=== PATIENT | male | born 1975 | race American Indian/Alaskan Native ===

== ENCOUNTER 2021-02-21 12:37 | Observation (INO) | payer MEDICAID ==
--- NOTE | 2021-02-21 13:42 | Emergency Department Report ---
ED General Adult HPI - General Chief complaint: Medical Clearance Stated complaint: HYPERTENSION /WEAKNESS Time Seen by Provider: 02/21/21 13:25 Source: patient Mode of arrival: Wheelchair Limitations: Physical Limitation - History of Present Illness Initial comments: This is a 45-year-old male who was sent from his dialysis clinic. He states that his last dialysis was on Thursday but initially stated it was . It is today. I am not exactly certain if he missed 1 dialysis run or 2. It was said by EMS and his dialysis clinic that he had missed 2 sessions. In any case he had been recently transferred to the local [facility]. He met his clinical asst for the first time today. It was decided that he should be dialyzed at the hospital. He states that his systolic blood pressure was in the 180s which he does not consider to be particularly high for him. He is been dialyzed since September. He has a recent fistula placement in his left wrist. The patient did not have blood work today. However, it was presumed due to mi ssed dialysis that his potassium would be high. Thereby according to EMS due to his uncontrolled hypertension and presumptive hyperkalemia he would have to be dialyzed at the hospital. Patient denies any specific symptom related to missing dialysis. He has not been short of breath nor significantly swelling. He does state that after his fistula placement he has had numbness essentially in the radial distribution of the dorsum of his hand and fingers/distal forearm. His vascular surgeon is Dr. Phoenix at the [facility]. -: hour(s) Radiation: other (Patient has no pain complaint) Associated Symptoms: denies other symptoms ED Review of Systems ROS: Stated complaint: HYPERTENSION /WEAKNESS Other details as noted in HPI Constitutional: denies: chills, fever Eyes: denies: eye pain, vision change ENT: denies: ear pain, throat pain Respiratory: denies: cough, shortness of breath Cardiovascular: denies: chest pain, palpitations Endocrine: no symptoms reported Gastrointestinal: denies: abdominal pain, nausea, diarrhea Genitourinary: as per HPI Musculoskeletal: denies: back pain, arthralgia Skin: denies: rash, lesions Neurological: as per HPI, numbness. denies: headache, weakness, paresthesias Psychiatric: denies: anxiety, depression Hematological/Lymphatic: denies: easy bleeding, easy bruising ED Past Medical Hx - Past Medical History Hx Hypertension: Yes Hx Renal Disease: Yes (dialysis t, th sat R chest access) Additional medical history: Legally blind - Surgical History Additional Surgical History: On Thursday, left arm fistula placed, waiting 90 days to use ED Physical Exam - General Limitations: Physical Limitation General appearance: obese - Head Head exam: Present: atraumatic, normocephalic - Eye Eye exam: Present: normal appearance. Absent: scleral icterus - ENT ENT exam: Present: mucous membranes moist - Neck Neck exam: Present: normal inspection - Respiratory Respiratory exam: Present: normal lung sounds bilaterally. Absent: respiratory distress - Cardiovascular Cardiovascular Exam: Present: regular rate, normal rhythm. Absent: systolic murmur, diastolic murmur, rubs, gallop - GI/Abdominal GI/Abdominal exam: Present: soft, normal bowel sounds. Absent: distended, tenderness, guarding, rebound - Rectal Rectal exam: Present: deferred - Extremities Exam Extremities exam: Present: normal inspection - Back Exam Back exam: Present: normal inspection - Neurological Exam Neurological exam: Present: alert, oriented X3, CN II-XII intact, motor sensory deficit (There does seem to be some decreased fine touch in the radial distribution, left hand/distal wrist/forearm) - Psychiatric Psychiatric exam: Present: normal affect, normal mood - Skin Skin exam: Present: warm, dry, intact, normal color. Absent: rash ED Course Vital Signs 02/21/21 12:43 Temperature 98.4 F Pulse Rate 93 H Respiratory 20 Rate Blood Pressure 187/92 O2 Sat by Pulse 100 Oximetry - Reevaluation(s) Reevaluation #1: Discussed with dialysis. They are aware of the need for emergency dialysis and can take the patient shortly. Discussed with nephrology. We will decide on temporizing medication versus the patient going directly to dialysis/both. 02/21/21 14:46 Reevaluation #2: Apparently Dr. Breaux has ordered the hyperkalemia cocktail. 02/21/21 14:55 ED Medical Decision Making - Lab Data Result diagrams: 02/21/21 13:44 02/21/21 13:44 Laboratory Results - last 24 hr 02/21/21 02/21/21 02/21/21 13:44 13:44 13:44 Sevier % (Auto) 8.1 H Eos % (Auto) 3.2 Sevier # (Auto) 1.0 H Eos # (Auto) 0.4 Baso # (Auto) 0.1 Seg Neutrophils % 76.3 H Seg Neutrophils # 9.0 H Sodium 134 L Chloride 102.2 Carbon Dioxide 17 L Anion Gap 22 BUN 71 H Creatinine 15.4 H Estimated GFR 4 BUN/Creatinine Ratio 5 Glucose 78 Calcium 8.8 Phosphorus 6.80 H Total Bilirubin 0.20 AST 11 Alkaline Phosphatase 84 NT-Pro-B Natriuret Pep 91651 H Total Protein 8.2 Albumin 4.5 Albumin/Globulin Ratio 1.2 Laboratory Results - last 24 hr 02/21/21 02/21/21 02/21/21 13:44 13:44 13:44 [place]vier % (Auto) 8.1 H Eos % (Auto) 3.2 Sevier # (Auto) 1.0 H Eos # (Auto) 0.4 Baso # (Auto) 0.1 Seg Neutrophils % 76.3 H Seg Neutrophils # 9.0 H Sodium 134 L Potassium 7.3 H* Chloride 102.2 Carbon Dioxide 17 L Anion Gap 22 BUN 71 H Creatinine 15.4 H Estimated GFR 4 BUN/Creatinine Ratio 5 Glucose 78 Calcium 8.8 Phosphorus 6.80 H Total Bilirubin 0.20 AST 11 Alkaline Phosphatase 84 NT-Pro-B Natriuret Pep 06118 H Total Protein 8.2 Albumin 4.5 Albumin/Globulin Ratio 1.2 - EKG Data -: EKG Interpreted by La EKG shows normal: sinus rhythm Rate: normal - EKG Data Interpretation: nonspecific ST-T wave nate, other (J-point elevation, T wave inversions, nonspecific/early repolarization.) - Radiology Data Radiology results: report reviewed "Mild cardiomegaly with minimal edema" per radiologist Critical Care Time: Yes Critical care time in (mins) excluding proc time.: 55 Critical care attestation.: If time is entered above; I have spent that time in minutes in the direct care of this critically ill patient, excluding procedure time. ED Disposition Clinical Impression: Hyperkalemia, Hyperphosphatemia, End-stage renal disease needing dialysis Fluid overload Qualifiers: Hypervolemia type: unspecified Qualified Code(s): E87.70 - Fluid overload, unspecified Cardiomyopathy Qualifiers: Cardiomyopathy type: unspecified Qualified Code(s): I42.9 - Cardiomyopathy, unspecified Disposition: OP ADMIT IP TO THIS HOSP Is pt being admited?: Yes Does the pt Need Aspirin: No Condition: Stable Time of Disposition: 14:47
[2021-02-21 14:10] LABS: Basophils # (Auto) 0.1 K/mm3 (0.0-0.1); Basophils % (Auto) 0.6 % (0.0-1.8); Eosinophils # (Auto) 0.4 K/mm3 (0.0-0.4); Eosinophils % (Auto) 3.2 % (0.0-4.3); Hematocrit 32.7 % (35.5-45.6); Hemoglobin 10.6 gm/dl (11.8-15.2); Lymphocytes # (Auto) 1.4 K/mm3 (1.2-5.4); Lymphocytes % (Auto) 11.8 % (13.4-35.0); Mean Corpuscular HGB Conc 32 % (32-34); Mean Corpuscular Volume 85 fl (84-94); Monocytes % (Auto) 8.1 % (0.0-7.3); Platelet Count 186 K/mm3 (140-440); Red Blood Count 3.86 M/mm3 (3.65-5.03); Red Cell Distribution Width 18.9 % (13.2-15.2)
--- NOTE | 2021-02-21 14:26 | XRay Report ---
CHEST 1 VIEW INDICATION: hypertension. COMPARISON: None FINDINGS: SUPPORT DEVICES: Right IJ catheter with tip at the cavoatrial junction. HEART: Mild cardiomegaly. LUNGS/PLEURA: Minimal edema with no effusion or consolidation. ADDITIONAL FINDINGS: None. IMPRESSION: 1. Mild cardiomegaly with minimal edema. 2. Right IJ catheter in satisfactory position. Signer Name: Anders De MD Signed: 02/21/2021 2:21 PM Workstation Name: [id number]
[2021-02-21 14:31] LABS: Calcium 8.8 mg/dL (8.4-10.2)
[2021-02-21 14:34] LABS: Albumin 4.5 g/dL (3.9-5)
[2021-02-21 14:41] LABS: Alanine Aminotransferase < 5 units/L (7-56); Bilirubin,Direct < 0.2 mg/dL (0-0.2); INR 1.05 (0.87-1.13)
[2021-02-21] MEDS ORDERED: ACETAMINOPHEN 325 MG TAB PO PRN (14:41)
[2021-02-21] MEDS ORDERED: ONDANSETRON 4 MG/2 ML INJ IV PRN (14:41)
--- NOTE | 2021-02-21 14:41 | History and Physical Report ---
History of Present Illness Chief complaint: My blood pressure is high History of present illness: 45 YO Male with ESRD on HD(T,R,Sa), HNT, Legally Blind presents to ED for evaluation. Patient reports "my blood pressure is really high". Patient states that he was in his usual state of health and presented to his dialysis center for his routine dialysis. Patient knowledges missing previous to dialysis sessions. Upon arrival the patient was found to be hypertensive with a systolic blood pressure in the 180s. Patient transported to [facility] for further care and evaluation of the aforementioned symptoms. The patient was seen and evaluated in the emergency department. All lab and imaging studies reviewed. Patient found to have end-stage renal disease in need of dialysis, hyperkalemia, as well as accelerated Hypertension with a blood pressure of 187/92. Patient placed in observation status and admitted to medical floor for further care. Nephrology team notified in ED. Patient treated with hyperkalemia cocktail in ED. No EKG changes. Patient denies fever, chills, chest pain, palpitation, productive cou gh, skin rash, recent ill contacts, or known exposure to COVID-19. No prior admission for review. No medication listed at time of admission for reconciliation. Past History Past Medical History: ESRD, hypertension Past Surgical History: Other (Dialysis access) Social history: , lives with family. denies: smoking, alcohol abuse, prescription drug abuse Family history: diabetes, hypertension Medications and Allergies Allergies Allergy/AdvReac Type Severity Reaction Status Date / Time clonidine Allergy Unknown Verified 02/21/21 14:59 hydralazine Allergy Unknown Verified 02/21/21 15:00 Review of Systems Constitutional: other (My blood pressure is high), no weight loss, no weight gain, no fever Ears, nose, mouth and throat: no ear pain, no tinnitis, no decreased hearing, no nose pain, no nasal congestion, no nasal discharge Cardiovascular: no chest pain, no orthopnea, no palpitations, no rapid/irregular heart beat, no edema, no syncope, no lightheadedness Respiratory: no cough, no cough with sputum, no shortness of breath, no dyspnea on exertion Gastrointestinal: no nausea, no vomiting, no constipation, no change in bowel habits, no hematemesis, no coffee ground emesis Genitourinary Male: no dysuria, no hematuria, no discharge, no urinary hes itancy, no nocturia, no incontinence, no genital pain Rectal: no pain, no incontinence, no bleeding Musculoskeletal: no neck stiffness, no neck pain, no arm numbness/tingling, no leg numbness/tingling Integumentary: no rash, no pruritis, no redness, no sores, no boils, no blisters Neurological: no head injury, no transient paralysis, no paralysis, no weakness, no numbness, no seizures, no tremors Psychiatric: no anxiety, no insomnia, no hypersomnia, no suicidal ideation, no disorientation, no hallucinations Endocrine: no heat intolerance, no polyphagia, no polydipsia, no nocturia, no excessive sweating Hematologic/Lymphatic: no easy bruising, no easy bleeding Allergic/Immunologic: no urticaria, no allergic rhinitis, no wheezing Exam - Constitutional Vitals: Temp Pulse Resp BP Pulse Ox 98.4 F 93 H 20 187/92 100 02/21/21 12:43 02/21/21 12:43 02/21/21 12:43 02/21/21 12:43 02/21/21 12:43 General appearance: Present: mild distress, obese - EENT Eyes: Present: PERRL ENT: hearing intact, clear oral mucosa - Neck Neck: Present: supple, normal ROM - Respiratory Respiratory effort: normal Respiratory: bilateral: CTA - Cardiovascular Heart Sounds: Present: S1 & S2. Absent: rub, click - Extremities Extremities: pulses symmetrical, No edema Peripheral Pulses: within normal limits - Abdominal General gastrointestinal: Present: soft, non-tender, non-distended, normal bowel sounds Male genitourinary: Present: normal - Integumentary Integumentary: Present: clear, warm, dry - Musculoskeletal Musculoskeletal: gait normal, strength equal bilaterally - Psychiatric Psychiatric: appropriate mood/affect, intact judgment & insight - Neurologic Neurologic: CNII-XII intact, moves all extremities Results - Labs CBC & Chem 7: 02/21/21 13:44 02/21/21 13:44 Labs: Abnormal lab results 02/21/21 02/21/21 02/21/21 Range/Units 13:44 13:44 13:44 Hughes % (Auto) 8.1 H (0.0-7.3) % Hughes # (Auto) 1.0 H (0.0-0.8) K/mm3 Seg Neutrophils % 76.3 H (40.0-70.0) % Seg Neutrophils # 9.0 H (1.8-7.7) K/mm3 Sodium 134 L (137-145) mmol/L Potassium 7.3 H* (3.6-5.0) mmol/L Carbon Dioxide 17 L (22-30) mmol/L BUN 71 H (9-20) mg/dL Creatinine 15.4 H (0.8-1.3) mg/dL Phosphorus 6.80 H (2.5-4.5) mg/dL ALT < 5 L (7-56) units/L NT-Pro-B Natriuret Pep 83611 H (0-450) pg/mL Assessment and Plan - Patient Problems (1) End-stage renal disease needing dialysis Current Visit: No Status: Acute Plan to address problem: Nephrology team consulted in ED, dialysis as per renal team. Due to missed dialysis sessions patient may require serial dialysis. Strict I's/O, monitor urine output every shift, avoid nephrotoxic agents. (2) Accelerated hypertension Current Visit: Yes Status: Acute Plan to address problem: Monitor blood pressure every shift, resume prehospital antihypertensive therapy, hydralazine IV every 6 hours as needed for systolic blood pressure greater than or equal to 155 mmHg. (3) Hyperkalemia Current Visit: No Status: Acute Plan to address problem: BMP, dialysis as per renal team, calcium gluconate, Kayexalate, insulin, D50, no EKG changes. (4) DVT prophylaxis Current Visit: Yes Status: Acute Plan to address problem: SCD to bilateral lower extremities while in bed, patient is ambulatory.
[2021-02-21 14:42] LABS: Partial Thromboplastin Time 45.1 Sec. (24.2-36.6)
[2021-02-21] MEDS ORDERED: hydrALAZINE 20 MG/1 ML INJ IV PRN (14:42)
[2021-02-21] MEDS ORDERED: CALCIUM GLUCONATE 1,000 MG in SODIUM CHLORIDE 0.9% 100 ML IV ONE (14:44)
[2021-02-21] MEDS ORDERED: DEXTROSE 50% IN WATER (25GM) 50 ML SYRINGE IV ONE (14:45)
[2021-02-21] MEDS ORDERED: SODIUM CHLORIDE 0.9% 100 ML IV PRN (15:17)
[2021-02-21] MEDS ORDERED: INSULIN REGULAR, HUMAN 100 UNITS/1 ML IV ONE (15:44)
[2021-02-21] MEDS ORDERED: SODIUM POLYSTYRENE 15 GM/60 ML ORAL LIQD PO ONE (15:44)
[2021-02-21 17:19] LABS: Hepatitis B Surface Antigen Non-Reactive (Negative); Hepatitis C Virus Antibody Non-Reactive (NonReactive)
[2021-02-21 19:17] VITALS: BP 136/64
--- NOTE | 2021-02-22 14:42 | Electrocardiograph Report ---
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
== END 2021-02-21 19:50 | disposition left against medical advice (07) ==
LOC: ED 12:37 → 3A 14:41
PROVIDERS: ADMIT Internal Medicine; ATTEND Internal Medicine
DX: I12.0 Hypertensive chronic kidney disease with stage 5 chronic kidney disease or end stage renal disease (principal); N18.6 End stage renal disease; H54.7 Unspecified visual loss; E87.5 Hyperkalemia; I42.9 Cardiomyopathy, unspecified; I51.7 Cardiomegaly; E87.70 Fluid overload, unspecified; E83.39 Other disorders of phosphorus metabolism; Z99.2 Dependence on renal dialysis; Z79.899 Other long term (current) drug therapy
CPT/HCPCS: 36415; 71045; 80048; 80074; 80076; 83880; 84100; 85025; 85610; 85730; 93005; 96374; 99291; G0378; J0610; J1815

== ENCOUNTER 2021-03-26 12:45 | Inpatient (IN) | payer MEDICARE, MEDICAID ==
[2021-03-26] MEDS ORDERED: ONDANSETRON 4 MG/2 ML INJ IV ONE (13:23)
[2021-03-26] MEDS ORDERED: ACETAMINOPHEN 325 MG TAB PO ONE (13:23)
[2021-03-26] MEDS ORDERED: PANTOPRAZOLE 40 MG INJ IV ONE ×2 (13:23→13:54)
--- NOTE | 2021-03-26 13:29 | Emergency Department Report ---
ED General Adult HPI - General Chief complaint: Nausea/Vomiting/Diarrhea Stated complaint: NAUSEA/VOMITING PUI?: No Time Seen by Provider: 03/26/21 13:07 Source: patient, EMS ( EMS documentation not available at time of chart dictation ), RN notes reviewed, old records reviewed Mode of arrival: Stretcher Limitations: No Limitations - History of Present Illness Initial comments: The patient was evaluated in the emergency department for symptoms described in the history of present illness. He/she was evaluated in the context of the global COVID-19 pandemic, which necessitated consideration that the patient might be at risk for infection with the virus that causes COVID-19. Institutional protocols and algorithms that pertain to the evaluation of patients at risk for COVID-19 are in a state of rapid change based on infor mation released by regulatory bodies including the CDC and federal and state organizations. These policies and algorithms were followed during the patient's care in the emergency department. Please note that these policies, procedures and recommendations changed on a rapid basis. During the history and physical examination, I am chaperoned by nurse Chino Arreola The patient is a 45-year-old gentleman. He is not known to myself previously. He has a history of end-stage renal disease on hemodialysis, Thursday, , Thursday. He reports that secondary to personal reasons, he missed a few of his recent hemodialysis sessions, and he was last dialyzed this past Thursday. He also has a history of cardiomyopathy. He currently does not take iron sulfate supplementation, he also reports he does not take systemic anticoagulation. The patient presents to the ER today with a complaint of weakness, abdominal cramping, nausea vomiting, and dark stool. Denies headache, neck pain, chest pain, new/different shortness of breath, loss of taste and smell. The patient states his abdominal cramping is diffuse. The patient to the best of his knowledge has never had a colonoscopy. The patient also reports he is currently Taoism. The patient states he will not received any blood related products. -: Gradual Location: abdomen Quality: aching Consistency: intermittent Improves with: none Worsens with: none - Related Data Home Medications Medication Instructions Recorded Confirmed Last Taken Losartan [Cozaar] 100 mg PO QDAY 03/26/21 03/26/21 Unknown NIFEdipine [Nifedipine ER] 90 mg PO DAILY 03/26/21 03/26/21 Unknown carvediloL [Coreg] 25 mg PO BID 03/26/21 03/26/21 Unknown Allergies Allergy/AdvReac Type Severity Reaction Status Date / Time clonidine Allergy Unknown Verified 02/21/21 14:59 hydralazine Allergy Unknown Verified 02/21/21 15:00 ED Review of Systems ROS: Stated complaint: NAUSEA/VOMITING Other details as noted in HPI Constitutional: malaise, weakness. denies: fever Eyes: denies: eye discharge ENT: denies: epistaxis Respiratory: denies: cough Cardiovascular: denies: chest pain Gastrointestinal: abdominal pain, nausea, melena, hematochezia Genitourinary: denies: dysuria Musculoskeletal: myalgia Neurological: weakness Psychiatric: anxiety Hematological/Lymphatic: denies: easy bleeding ED Past Medical Hx - Past Medical History Hx Hypertension: Yes Hx Congestive Heart Failure: Yes Hx Renal Disease: Yes (dialysis t, th sat R chest access) Additional medical history: Legally blind - Surgical History Additional Surgical History: On Thursday, left arm fistula placed, waiting 90 days to use - Social History Smoking Status: Former Smoker Substance Use Type: Alcohol - Medications Home Medications: Home Medications Medication Instructions Recorded Confirmed Last Taken Type Losartan [Cozaar] 100 mg PO QDAY 03/26/21 03/26/21 Unknown History NIFEdipine [Nifedipine ER] 90 mg PO DAILY 03/26/21 03/26/21 Unknown History carvediloL [Coreg] 25 mg PO BID 03/26/21 03/26/21 Unknown History ED Physical Exam - General Limitations: No Limitations General appearance: alert, anxious, obese - Head Head exam: Present: atraumatic, normocephalic - Eye Eye exam: Present: normal appearance, EOMI. Absent: nystagmus - ENT ENT exam: Present: normal exam, normal orophraynx, mucous membranes moist, normal external ear exam - Neck Neck exam: Present: normal inspection, full ROM. Absent: tenderness, meningismus - Respiratory Respiratory exam: Present: normal lung sounds bilaterally. Absent: respiratory distress, wheezes, rales, rhonchi, stridor, decreased breath sounds - Cardiovascular Cardiovascular Exam: Present: normal rhythm, tachycardia, normal heart sounds. Absent: bradycardia, irregular rhythm, systolic murmur, diastolic murmur, rubs, gallop - GI/Abdominal GI/Abdominal exam: Present: soft. Absent: distended, tenderness, guarding, belia ound, rigid, pulsatile mass - Rectal Rectal exam: Present: normal inspection, heme (+) stool, black stool - Extremities Exam Extremities exam: Present: normal inspection (Upper extremity fistula, without redness, pus or streaking), full ROM, other (2+ pulses noted in the bilateral upper and lower extremities. There is no palpable cord. negative Homans sign. Muscular compartments are soft. The pelvis is stable.). Absent: calf tenderness - Back Exam Back exam: Present: normal inspection, full ROM. Absent: tenderness, CVA tenderness (R), CVA tenderness (L), paraspinal tenderness, vertebral tenderness - Neurological Exam Neurological exam: Present: alert, other (No facial droop. Tongue midline. Extraocular movements intact bilaterally. Facial sensation intact to light touch in V1, V2, V3 distribution bilaterally. 5 and a 5 strength in 4 extremities. Sensation intact to light touch in 4 extremities.). Absent: motor sensory deficit - Psychiatric Psychiatric exam: Present: anxious - Skin Skin exam: Present: warm, dry, intact, normal color. Absent: rash ED Course Vital Signs 03/26/21 03/26/21 03/26/21 12:49 12:57 14:10 Temperature 98.2 F Pulse Rate 106 H 100 H Respiratory 20 20 18 Rate Blood Pressure 171/86 Blood Pressure 157/93 [Right] O2 Sat by Pulse 100 100 100 Oximetry - Reevaluation(s) Reevaluation #1: 03/26/21 14:52 Differential diagnosis, including but not limited to: Upper GI bleed, azotemia, uremia, metabolic acidosis, end-stage renal disease, missed hemodialysis, noncompliance, symptomatic anemia, Taoism Assessment and plan: 45-year-old gentleman, who is tachycardic, hypertensive, with a complaint of abdominal pain, and dark stool. He has dark stool on rectal exam, and is strongly guaiac positive. Hemoglobin, hematocrit are reviewed and appreciated, and they have shown a significant drop with compared to prior values within the past month. Patient is a Taoism, currently awake, alert, oriented, sober, and exhibits decision-making capacity. Under no circumstances will he accepts human blood products. He understands the risks of not having a blood transfusion, including , disability, paralysis, loss of quality of life. He is amenable to medical therapy at this time. Start gentle IV fluids, Protonix, 2 large-bore IVs, desmopressin, n.p.o. status. Obtain noncontrast CT scan of the abdomen pelvis to assess for additional pathology. Contacted nephrology on-call, Dr. Jo Warner Have discussed the patient's history, physical, pertinent laboratory studies. He will come by and evaluate the patient shortly, and make recommendations regarding hemodialysis. In terms of potassium of 5.4, we will treat medically, but withhold Kayexalate, given presence of GI bleed. Contacted gastroenterology on-call, Dr. Billy, I have discussed the patient's history, physical, pertinent laboratory studies. He indicates that it would be desirable to transfer the patient to a facility that can accommodate Jehov[employer]'s [employer]es. We will therefore start with [place], and then if necessary, reach out to alternative facilities to see if this patient can be accommodated. However, Dr. Billy does indicate that if necessary, he can consult on the patient while he is here at this facility. Reevaluation #2: 03/26/21 14:59 Received call back from [place] transfer center. Be transferred nurse that I spoke to is not certain if they have a bloodless program that can accommodate Je[employer]es. She is going to investigate and call me back. In the meantime, we will investigate alternative options, and we will reach out to the [facility]. 03/26/21 15:07 Discussed with [facility]. They no longer have a bloodless medicine program. They have suggested that [place] and/or [place] may have bloodless medicine programs. We will reach out. 03/26/21 15:17 [place] on diversion. They are not excepting patients. [place] on diversion. They are not excepting patients. [place] does not have a bloodless program that is able to accommodate this p articular patient. Gastroenterology, nephrology updated. Patient will need to be admitted to this hospital. Case is presented to the hospital physician, Dr. Owen Olson, who will accept the patient to his service. Reevaluation #3: 03/26/21 15:39 CT scan of the abdomen pelvis is negative for acute disease. ED Medical Decision Making - Lab Data Result diagrams: 03/26/21 13:10 03/26/21 13:10 Vital Signs 03/26/21 03/26/21 03/26/21 12:49 12:57 14:10 Temperature 98.2 F Pulse Rate 106 H 100 H Respiratory 20 20 18 Rate Blood Pressure 171/86 Blood Pressure 157/93 [Right] O2 Sat by Pulse 100 100 100 Oximetry Lab Results 03/26/21 03/26/21 03/26/21 Range/Units 13:10 13:10 13:10 WBC 14.8 H (4.5-11.0) K/mm3 RBC 1.66 L (3.65-5.03) M/mm3 Hgb 4.6 L* (11.8-15.2) gm/dl Hct 14.0 L* (35.5-45.6) % MCV 85 (84-94) fl MCH 28 (28-32) pg MCHC 33 (32-34) % RDW 19.0 H (13.2-15.2) % Plt Count 169 (140-440) K/mm3 PT 15.4 H (12.2-14.9) Sec. INR 1.22 H (0.87-1.13) APTT 48.4 H (24.2-36.6) Sec. Sodium 140 (137-145) mmol/L Potassium 5.4 H (3.6-5.0) mmol/L Chloride 99.4 (98-107) mmol/L Carbon Dioxide 19 L (22-30) mmol/L Anion Gap 27 mmol/L BUN 98 H (9-20) mg/dL Creatinine 11.5 H (0.8-1.3) mg/dL Estimated GFR 6 ml/min BUN/Creatinine Ratio 9 % Glucose 91 (75-100) mg/dL Calcium 8.4 (8.4-10.2) mg/dL Magnesium 2.00 (1.7-2.3) mg/dL Total Bilirubin 0.20 (0.1-1.2) mg/dL AST 10 (5-40) units/L ALT 5 L (7-56) units/L Alkaline Phosphatase 57 (35-129) units/L Total Creatine Kinase 218 H (55-170) units/L Total Protein 5.9 L (6.3-8.2) g/dL Albumin 3.7 L (3.9-5) g/dL Albumin/Globulin Ratio 1.7 % Blood Type 03/26/21 Range/Units 13:42 WBC (4.5-11.0) K/mm3 RBC (3.65-5.03) M/mm3 Hgb (11.8-15.2) gm/dl Hct (35.5-45.6) % MCV (84-94) fl MCH (28-32) pg MCHC (32-34) % RDW (13.2-15.2) % Plt Count (140-440) K/mm3 PT (12.2-14.9) Sec. INR (0.87-1.13) APTT (24.2-36.6) Sec. Sodium (137-145) mmol/L Potassium (3.6-5.0) mmol/L Chloride (98-107) mmol/L Carbon Dioxide (22-30) mmol/L Anion Gap mmol/L BUN (9-20) mg/dL Creatinine (0.8-1.3) mg/dL Estimated GFR ml/min BUN/Creatinine Ratio % Glucose (75-100) mg/dL Calcium (8.4-10.2) mg/dL Magnesium (1.7-2.3) mg/dL Total Bilirubin (0.1-1.2) mg/dL AST (5-40) units/L ALT (7-56) units/L Alkaline Phosphatase (35-129) units/L Total Creatine Kinase (55-170) units/L Total Protein (6.3-8.2) g/dL Albumin (3.9-5) g/dL Albumin/Globulin Ratio % Blood Type O POSITIVE - EKG Data -: EKG Interpreted by [facility] EKG shows normal: sinus rhythm - EKG Data 03/26/21 14:51 EKG interpreted at 13: 52 Sinus rhythm, tachycardia, 102 bpm. Normal axis, QTC 494 ms. Minimal motion artifact. This is an abnormal EKG. This is not a STEMI. - Radiology Data Radiology results: pending Critical Care Time: Yes Critical care time in (mins) excluding proc time.: 74 Critical care attestation.: If time is entered above; I have spent that time in minutes in the direct care of this critically ill patient, excluding procedure time. ED Disposition Clinical Impression: ESRD needing dialysis, Missed dialysis, Anemia, GI bleed, Azotemia, Uremia, Metabolic acidosis Disposition: DC-09 OP ADMIT IP TO THIS HOSP Is pt being admited?: Yes Does the pt Need Aspirin: No Condition: Critical
[2021-03-26 13:42] LABS: Mean Corpuscular HGB Conc 33 % (32-34); Mean Corpuscular Volume 85 fl (84-94); Platelet Count 169 K/mm3 (140-440); Red Blood Count 1.66 M/mm3 (3.65-5.03)
[2021-03-26 13:53] LABS: INR 1.22 (0.87-1.13)
[2021-03-26 13:54] LABS: Partial Thromboplastin Time 48.4 Sec. (24.2-36.6)
[2021-03-26] MEDS ORDERED: ACETAMINOPHEN 325 MG TAB ONE (13:54)
[2021-03-26] MEDS ORDERED: ONDANSETRON 4 MG/2 ML INJ ONE (13:54)
[2021-03-26 14:29] LABS: Hemoglobin 4.6 gm/dl (11.8-15.2)
[2021-03-26 14:33] LABS: Albumin 3.7 g/dL (3.9-5); Calcium 8.4 mg/dL (8.4-10.2)
--- NOTE | 2021-03-26 14:49 | Cat Scan Report ---
CT ABDOMEN AND PELVIS WITHOUT CONTRAST HISTORY: Abdominal pain, nausea and vomiting COMPARISON: None TECHNIQUE: Routine abdominal and pelvic CT exam performed without contrast. Lack of intravenous cont rast limits evaluation of the vascular and solid organs.. All CT scans at this location are performed using CT dose reduction for ALARA by means of automated exposure control. FINDINGS: CT ABDOMEN: Lung Bases: No significant abnormality. Liver: No significant abnormality. Biliary: No significant abnormality. Spleen: No significant abnormality. Unenlarged. Pancreas: No significant abnormality. Adrenals: Bilateral adrenal glands are mildly hypertrophied without discrete focal mass. Kidneys: No significant abnormality. Lymphatics: No lymphadenopathy. Vasculature: No significant abnormality. Bowel/Peritoneum: Nonobstructive bowel pattern. Diverticulosis without mesocolonic fat stranding. No free air. No free fluid. Normal appendix. CT PELVIC: : No significant abnormality. Lymphatics: No lymphadenopathy. Osseous Structures: No aggressive appearing osseous lesions. Additional Findings: None IMPRESSION: 1. No acute findings. 2. Colonic diverticulosis without evidence of diverticulitis. 3. Mild bilateral adrenal hyperplasia. Signer Name: Rafi Ellison MD Signed: 03/26/2021 2:45 PM Workstation Name: [id number]
[2021-03-26] MEDS ORDERED: SODIUM BICARB 8.4% 50 MEQ/50 ML SYRINGE IV ONE ×2 (15:00→15:09)
[2021-03-26] MEDS ORDERED: DESMOPRESSIN ACETATE IV ONE (15:00)
[2021-03-26] MEDS ORDERED: PANTOPRAZOLE 80 MG in SODIUM CHLORIDE 0.9% 100 ML IV SCH (15:00)
[2021-03-26] MEDS ORDERED: SODIUM CHLORIDE 0.9% IV ONE (15:00)
[2021-03-26] MEDS ORDERED: DEXTROSE 50% IN WATER (25GM) 50 ML SYRINGE IV PRN (15:00)
[2021-03-26] MEDS ORDERED: INSULIN REGULAR, HUMAN 100 UNITS/1 ML IV ONE (15:00)
[2021-03-26] MEDS ORDERED: DEXTROSE 50% IN WATER (25GM) 50 ML SYRINGE IV ONE (15:08)
[2021-03-26] MEDS ORDERED: INSULIN REGULAR, HUMAN 100 UNITS/1 ML ONE (15:10)
--- NOTE | 2021-03-26 15:20 | Consultation ---
History of Present Illness - Reason for Consult end stage renal disease - History of Present Illness patient with esrd on HD since 08/2020 every TTS, last tx was this AM but only finished one hour, he came to the ED for weakness, abdominal cramping, nausea vomiting, and dark stool. Denies headache, neck pain, chest pain, new/different shortness of breath, loss of taste and smell. The patient states his abdominal cramping is diffuse. The patient also reports he is currently Sabianist. The patient states he will not received any blood related products. renal; consult was requested for HD management while inpatient Past History Past Medical History: anemia, ESRD, hypertension Medications and Allergies Allergies Allergy/AdvReac Type Severity Reaction Status Date / Time clonidine Allergy Unknown Verified 02/21/21 14:59 hydralazine Allergy Unknown Verified 02/21/21 15:00 Home Medications Medication Instructions Recorded Confirmed Last Taken Type Losartan [Cozaar] 100 mg PO QDAY 03/26/21 03/26/21 Unknown History NIFEdipine [Nifedipine ER] 90 mg PO DAILY 03/26/21 03/26/21 Unknown History carvediloL [Coreg] 25 mg PO BID 03/26/21 03/26/21 Unknown History Active Meds: Active Medications Dextrose (Dextrose 50% In Water (25gm) 50 Ml Syringe) 50 ml IV Q30MIN PRN; Protocol PRN Reason: Hypoglycemia Epoetin Vaibhav (Epoetin Vaibhav 2,000 Unit/1 Ml Vial) 20,000 unit IV VANGIE PRATIMA Desmopressin Acetate 33.9 mcg/ (Sodium Chloride) 58.475 mls @ 100 mls/hr IV ONCE ONE Stop: 03/26/21 15:35 Pantoprazole Sodium 80 mg/ (Sodium Chloride) 100 mls @ 10 mls/hr IV DIRECT PRATIMA Calcium Gluconate 1,000 mg/ (Sodium Chloride) 110 mls @ 660 mls/hr IV ONCE ONE Stop: 03/26/21 16:09 Exam - Vital Signs Vital signs: Vital Signs Temp Pulse Resp BP Pulse Ox 98.2 F 106 H 20 171/86 100 03/26/21 12:49 03/26/21 12:49 03/26/21 12:49 03/26/21 12:49 03/26/21 12:49 - General Appearance General appearance: well-developed EENT: ATNC, PERRL Neck: Present: neck supple Respiratory: Clear to Ascultation Heart: tachycardia Gastrointestinal: Present: normal Integumentary: no rash, warm and dry Neurologic: no focal deficit, no asterixis Musculoskeletal: Present: other Psychiatric: mood/affect appropriate, cooperative Results - Lab Results 03/26/21 13:10 03/26/21 13:10 Most recent lab results Calcium 8.4 mg/dL (8.4-10.2) 03/26/21 13:10 Magnesium 2.00 mg/dL (1.7-2.3) 03/26/21 13:10 Assessment and Plan ESRD on HD Anemia in CKD \HTN Hyperkalemia Weakness Nuasea and vomiting HD tomorrow for clearance and volume removal will assess dialysis nees daily Epogen 20,000 unit withs HD iron panel ordered, may need to start IV iron if appropriate renally dose meds strict I&O
[2021-03-26] MEDS ORDERED: MORPHINE 2 MG/1 ML INJ IV ONE (15:45)
[2021-03-26] MEDS ORDERED: MORPHINE 2 MG/1 ML INJ ONE (15:47)
[2021-03-26] MEDS ORDERED: CALCIUM GLUCONATE 1,000 MG in SODIUM CHLORIDE 0.9% 100 ML IV ONE (16:00)
[2021-03-26] MEDS ORDERED: EPOETIN ALFA-EPBX 20,000 UNIT/1 ML VIAL IV SCH (16:00)
[2021-03-26] MEDS ORDERED: EPOETIN ALFA 2,000 UNIT/1 ML VIAL IV SCH (16:00)
[2021-03-26 17:16] LABS: Hepatitis B Surface Antigen Non-Reactive (Negative); Hepatitis C Virus Antibody Non-Reactive (NonReactive)
--- NOTE | 2021-03-26 17:29 | Gastroenterology Consultation ---
History of Present Illness - Reason for Consult Consult date: 03/26/21 Acute blood loss anemia Requesting physician: GAUDENCIO VINCENT - History of Present Illness The patient is a 45 yo male admitted after missing HD. He has new ESRD on HD in the last 6 months (per records at [facility]). He has associated melena in the ER, and was noted to have a hct of 14. Although last month his hct was over 30, in October at [facility] it was 24-26. He has been taking daily ASA, and PRN advil/aleve for aches and pain. He denies hematemesis, or a hx of PUD. He has back pain but no severe abdominal pain or vomiting. He is not on antiacid therapy at home. He is a [employer], and states multiple times he does not want a blood transfusion, even it leads to his demise. It is not clear if he was getting epogen at his HD (recently changed centers). Past History Past Medical History: anemia, ESRD, hypertension Medications and Allergies Allergies Allergy/AdvReac Type Severity Reaction Status Date / Time clonidine Allergy Unknown Verified 02/21/21 14:59 hydralazine Allergy Unknown Verified 02/21/21 15:00 Home Medications Medication Instructions Recorded Confirmed Last Taken Type Losartan [Cozaar] 100 mg PO QDAY 03/26/21 03/26/21 Unknown History NIFEdipine [Nifedipine ER] 90 mg PO DAILY 03/26/21 03/26/21 Unknown History carvediloL [Coreg] 25 mg PO BID 03/26/21 03/26/21 Unknown History Active Meds: Active Medications Dextrose (Dextrose 50% In Water (25gm) 50 Ml Syringe) 50 ml IV Q30MIN PRN; Protocol PRN Reason: Hypoglycemia Last Admin: 03/26/21 15:18 Dose: 50 ml Documented by: Pantoprazole Sodium 80 mg/ (Sodium Chloride) 100 mls @ 10 mls/hr IV DIRECT PRATIMA I HAVE REVIEWED/RECONCILED MEDICATIONS Review of Systems - Review of Systems All systems: negative (as noted in the HPI.) Exam - Constitutional Vital Signs: Temp Pulse Resp BP Pulse Ox 98.2 F 110 H 14 156/80 100 03/26/21 12:49 03/26/21 17:16 03/26/21 17:16 03/26/21 17:16 03/26/21 17:16 General appearance: no acute distress - EENT Eyes: PERRL, EOM intact ENT: hearing intact, clear oral mucosa - Neck Neck: supple, normal ROM - Respiratory Respiratory effort: normal Respiratory: bilateral: CTA - Cardiovascular Rhythm: regular Heart Sounds: Present: S1 & S2 Extremities: no ischemia, No edema - Gastrointestinal General gastrointestinal: Present: soft, non-tender, non-distended - Integumentary Integumentary: Present: clear, warm, dry - Neurologic Neurological: alert and oriented x3 - Labs CBC & Chem 7: 03/26/21 13:10 03/26/21 13:10 Lab Results: Laboratory Results - last 24 hr 03/26/21 03/26/21 03/26/21 13:10 13:10 13:10 WBC 14.8 H RBC 1.66 L Hgb 4.6 L* Hct 14.0 L* MCV 85 MCH 28 MCHC 33 RDW 19.0 H Plt Count 169 PT 15.4 H INR 1.22 H APTT 48.4 H Sodium 140 Potassium 5.4 H Chloride 99.4 Carbon Dioxide 19 L Anion Gap 27 BUN 98 H Creatinine 11.5 H Estimated GFR 6 BUN/Creatinine Ratio 9 Glucose 91 Calcium 8.4 Magnesium 2.00 Total Bilirubin 0.20 AST 10 ALT 5 L Alkaline Phosphatase 57 Total Creatine Kinase 218 H Total Protein 5.9 L Albumin 3.7 L Albumin/Globulin Ratio 1.7 Hepatitis A IgM Ab Hep Bs Antigen Hep B Core IgM Ab Hepatitis C Antibody Blood Type Antibody Screen 03/26/21 03/26/21 13:42 16:00 WBC RBC Hgb Hct MCV MCH MCHC RDW Plt Count PT INR APTT Sodium Potassium Chloride Carbon Dioxide Anion Gap BUN Creatinine Estimated GFR BUN/Creatinine Ratio Glucose Calcium Magnesium Total Bilirubin AST ALT Alkaline Phosphatase Total Creatine Kinase Total Protein Albumin Albumin/Globulin Ratio Hepatitis A IgM Ab Non-reactive Hep Bs Antigen Non-reactive Hep B Core IgM Ab Non-reactive Hepatitis C Antibody Non-reactive Blood Type O POSITIVE Antibody Screen Negative Assessment and Plan - Patient Problems (1) Acute blood loss anemia Current Visit: Yes Status: Acute Plan to address problem: - The patient will receive HD, and epogen. - We will stop all NSAIDs, and start protonix IV. - Consider EGD when more clinically stable. 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
[2021-03-26] MEDS ORDERED: METOCLOPRAMIDE 10 MG/2 ML INJ IV PRN (20:32)
[2021-03-26] MEDS ORDERED: ACETAMINOPHEN 325 MG TAB PO PRN (20:32)
[2021-03-26] MEDS ORDERED: ONDANSETRON 4 MG/2 ML INJ IV PRN (20:32)
[2021-03-26] MEDS ORDERED: HYDROmorphone 1 MG/1 ML INJ ONE (20:45)
[2021-03-26] MEDS: HYDROmorphone 1 MG/1 ML INJ IV PRN (20:47)
[2021-03-26] MEDS ORDERED: HETASTARCH 6% 500 ML IV ONE (20:55)
[2021-03-26] MEDS ORDERED: CALCIUM GLUCONATE 2,000 MG in SODIUM CHLORIDE 0.9% 100 ML IV ONE (22:35)
[2021-03-26] MEDS: PANTOPRAZOLE 40 MG INJ IV SCH (22:45)
[2021-03-26] MEDS ORDERED: cloNIDine TTS 0.2 MG/24 HR PATCH TD SCH (23:00)
[2021-03-27] MEDS ORDERED: MORPHINE 2 MG/1 ML INJ ONE (00:02)
[2021-03-27] MEDS: MORPHINE 2 MG/1 ML INJ IV PRN ×5 (00:03→19:40)
[2021-03-27] MEDS: HYDROmorphone 1 MG/1 ML INJ IV PRN ×2 (02:00→05:54)
[2021-03-27] MEDS ORDERED: hydrALAZINE 20 MG/1 ML INJ IV PRN ×2 (03:08→08:52)
--- NOTE | 2021-03-27 07:11 | History and Physical Report ---
History of Present Illness Date of examination: 03/26/21 Date of admission: 03/26/21 15:19 Chief complaint: Dark stools from a.m. History of present illness: History of Present Illness 44-year-old -Irish male with history of end-stage renal disease and hypertension, hemodialysis on Thursday most of hemodialysis session recorder for several reasons. Patient is slightly short of breath. Patient comes in for abdominal cramping nausea vomiting and dark stools. Patient has a very low hemoglobin and hematocrit of around 4 and 16. 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 and does not want a blood transfusion. Only request for plasma expanders. Patient has signed DNR refusing blood products. Other facilities with the program for Ep[employer] were called but could not be transferred. GI consulted. Patient is feels very weak. No exposure to coronavirus. Patient is DNR - Past Medical History Hx Hypertension: Yes Hx Congestive Heart Failure: Yes Hx Renal Disease: Yes (dialysis t, sat R chest access) Additional medical history: Legally blind - Surgical History Additional Surgical History: On Thursday, left arm fistula placed, waiting 90 days to use - Social History Smoking Status: Former Smoker Substance Use Type: Alcohol - Medications Home Medications: Home Medications Medication Instructions Recorded Confirmed Last Taken Type Losartan [Cozaar] 100 mg PO QDAY 03/26/21 03/26/21 Unknown History NIFEdipine [Nifedipine ER] 90 mg PO DAILY 03/26/21 03/26/21 Unknown History carvediloL [Coreg] 25 mg PO BID 03/26/21 03/26/21 Unknown History Review of Systems ROS: Stated complaint: NAUSEA/VOMITING Other details as noted in HPI Constitutional: malaise, weakness. denies: fever Eyes: denies: eye discharge ENT: denies: epistaxis Respiratory: denies: cough Cardiovascular: denies: chest pain Gastrointestinal: abdominal pain, nausea, melena, hematochezia Genitourinary: denies: dysuria Musculoskeletal: myalgia Neurological: weakness Psychiatric: anxiety Hematological/Lymphatic: denies: easy bleeding Past History Past Medical History: anemia, ESRD, hypertension Medications and Allergies Allergies Allergy/AdvReac Type Severity Reaction Status Date / Time clonidine Allergy Unknown Verified 02/21/21 14:59 hydralazine Allergy Unknown Verified 02/21/21 15:00 Home Medications Medication Instructions Recorded Confirmed Last Taken Type Losartan [Cozaar] 100 mg PO QDAY 03/26/21 03/26/21 Unknown History NIFEdipine [Nifedipine ER] 90 mg PO DAILY 03/26/21 03/26/21 Unknown History carvediloL [Coreg] 25 mg PO BID 03/26/21 03/26/21 Unknown History Active Meds: Active Medications Acetaminophen (Acetaminophen 325 Mg Tab) 650 mg PO Q4H PRN PRN Reason: Pain MILD(1-3)/Fever >100.5/REA Dextrose (Dextrose 50% In Water (25gm) 50 Ml Syringe) 50 ml IV Q30MIN PRN; Protocol PRN Reason: Hypoglycemia Last Admin: 03/26/21 15:18 Dose: 50 ml Documented by: Hydromorphone HCl (Hydromorphone 1 Mg/1 Ml Inj) 0.5 mg IV Q3H PRN PRN Reason: Pain , Severe (7-10) Last Admin: 03/27/21 05:54 Dose: 0.5 mg Documented by: Metoclopramide HCl (Metoclopramide 10 Mg/2 Ml Inj) 10 mg IV Q6H PRN PRN Reason: Nausea And Vomiting Morphine Sulfate (Morphine 2 Mg/1 Ml Inj) 2 mg IV Q4H PRN PRN Reason: Pain, Moderate (4-6) Last Admin: 03/27/21 03:46 Dose: 2 mg Documented by: Ondansetron HCl (Ondansetron 4 Mg/2 Ml Inj) 4 mg IV Q3H PRN PRN Reason: Nausea And Vomiting Pantoprazole Sodium (Pantoprazole 40 Mg Inj) 40 mg IV BID [facility] Last Admin: 03/26/21 22:45 Dose: Not Given Documented by: Sodium Chloride (Sodium Chloride 0.9% 10 Ml Flush Syringe) 10 ml IV BID [facility] Last Admin: 03/26/21 22:45 Dose: 10 ml Documented by: Sodium Chloride (Sodium Chloride 0.9% 10 Ml Flush Syringe) 10 ml IV PRN PRN PRN Reason: LINE FLUSH Exam - Constitutional Vitals: Temp Pulse Resp BP Pulse Ox 99.5 F 108 H 16 149/97 94 03/27/21 03:44 03/27/21 06:20 03/27/21 06:20 03/27/21 06:30 03/27/21 06:30 General appearance: Present: no acute distress, well-nourished - EENT Eyes: Present: PERRL ENT: hearing intact, clear oral mucosa - Neck Neck: Present: supple, normal ROM - Respiratory Respiratory effort: normal Respiratory: bilateral: CTA - Cardiovascular Heart rate: 78 Rhythm: regular Heart Sounds: Present: S1 & S2. Absent: rub, click - Extremities Extremities: pulses symmetrical, No edema Peripheral Pulses: within normal limits - Abdominal General gastrointestinal: Present: soft, non-tender, non-distended, normal bowel sounds Male genitourinary: Present: normal - Integumentary Integumentary: Present: clear, warm, dry - Musculoskeletal Musculoskeletal: gait normal, strength equal bilaterally - Psychiatric Psychiatric: appropriate mood/affect, intact judgment & insight - Neurologic Neurologic: CNII-XII intact, moves all extremities Results - Labs CBC & Chem 7: 03/26/21 13:10 03/26/21 13:10 Labs: Laboratory Last Values WBC 14.8 K/mm3 (4.5-11.0) H 03/26/21 13:10 RBC 1.66 M/mm3 (3.65-5.03) L 03/26/21 13:10 Hgb 4.6 gm/dl (11.8-15.2) L* 03/26/21 13:10 Hct 14.0 % (35.5-45.6) L* 03/26/21 13:10 MCV 85 fl (84-94) 03/26/21 13:10 MCH 28 pg (28-32) 03/26/21 13:10 MCHC 33 % (32-34) 03/26/21 13:10 RDW 19.0 % (13.2-15.2) H 03/26/21 13:10 Plt Count 169 K/mm3 (140-440) 03/26/21 13:10 PT 15.4 Sec. (12.2-14.9) H 03/26/21 13:10 INR 1.22 (0.87-1.13) H 03/26/21 13:10 APTT 48.4 Sec. (24.2-36.6) H 03/26/21 13:10 Sodium 140 mmol/L (137-145) 03/26/21 13:10 Potassium 5.4 mmol/L (3.6-5.0) H 03/26/21 13:10 Chloride 99.4 mmol/L (98-107) 03/26/21 13:10 Carbon Dioxide 19 mmol/L (22-30) L 03/26/21 13:10 Anion Gap 27 mmol/L 03/26/21 13:10 BUN 98 mg/dL (9-20) H 03/26/21 13:10 Creatinine 11.5 mg/dL (0.8-1.3) H 03/26/21 13:10 Estimated GFR 6 ml/min 03/26/21 13:10 BUN/Creatinine Ratio 9 % 03/26/21 13:10 Glucose 91 mg/dL (75-100) 03/26/21 13:10 Calcium 8.4 mg/dL (8.4-10.2) 03/26/21 13:10 Magnesium 2.00 mg/dL (1.7-2.3) 03/26/21 13:10 Total Bilirubin 0.20 mg/dL (0.1-1.2) 03/26/21 13:10 AST 10 units/L (5-40) 03/26/21 13:10 ALT 5 units/L (7-56) L 03/26/21 13:10 Alkaline Phosphatase 57 units/L (35-129) 03/26/21 13:10 Total Creatine Kinase 218 units/L (55-170) H 03/26/21 13:10 Total Protein 5.9 g/dL (6.3-8.2) L 03/26/21 13:10 Albumin 3.7 g/dL (3.9-5) L 03/26/21 13:10 Albumin/Globulin Ratio 1.7 % 03/26/21 13:10 Hepatitis A IgM Ab Non-reactive (NonReactive) 03/26/21 16:00 Hep Bs Antigen Non-reactive (Negative) 03/26/21 16:00 Hep B Core IgM Ab Non-reactive (NonReactive) 03/26/21 16:00 Hepatitis C Antibody Non-reactive (NonReactive) 03/26/21 16:00 Blood Type O POSITIVE 03/26/21 13:42 Antibody Screen Negative 03/26/21 13:42 Short CBC 03/26/21 Range/Units 13:10 WBC 14.8 H (4.5-11.0) K/mm3 Hgb 4.6 L* (11.8-15.2) gm/dl Hct 14.0 L* (35.5-45.6) % Plt Count 169 (140-440) K/mm3 BMP 03/26/21 13:10 Sodium 140 Potassium 5.4 H Chloride 99.4 Carbon Dioxide 19 L BUN 98 H Creatinine 11.5 H Glucose 91 Calcium 8.4 Cardiac Enzymes 03/26/21 Range/Units 13:10 Total Creatine Kinase 218 H (55-170) units/L Liver Function 03/26/21 Range/Units 13:10 Total Bilirubin 0.20 (0.1-1.2) mg/dL AST 10 (5-40) units/L ALT 5 L (7-56) units/L Alkaline Phosphatase 57 (35-129) units/L Albumin 3.7 L (3.9-5) g/dL Davis/IV: Voiding Method Urinal Assessment and Plan Advance Directives: Yes (DNR) VTE prophylaxis?: Chemical Plan of care discussed with patient/family: Yes - Patient Problems (1) GI bleed Current Visit: Yes Status: Acute (2) Acute blood loss anemia Current Visit: Yes Status: Acute Plan to address problem: 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 Cannot be transfused Plasma expanders in the form of Hespan ordered Monitor closely GI consult requested (3) ESRD needing dialysis Current Visit: Yes Status: Chronic Plan to address problem: Nephrology consulted for hemodialysis (4) Hypertension Current Visit: Yes Status: Chronic Qualifiers: Hypertension type: essential hypertension Qualified Code(s): I10 - Essential (primary) hypertension Plan to address problem: Hold oral antihypertensives initiated on Catapres patch (5) Hyperkalemia Current Visit: Yes Status: Acute Plan to address problem: Hyperkalemia treated (6) DVT prophylaxis Current Visit: Yes Status: Acute Plan to address problem: On SCDs and GI prophylaxis
--- NOTE | 2021-03-27 08:34 | Progress Note ---
Assessment and Plan Assessment and plan: 45-year-old male patient who is a Jehovah witness with significant past medical history of hypertension , ESRD on hemodialysis is admitted through emergency room with severe GI bleeding and acute blood loss anemia with hemoglobin of 4.6- 3.4 patient refused blood transfusion, GI and nephrology following Patient counseled,blood transfusion if he agrees Severe GI bleeding n.p.o. status, GI evaluated, possible endoscopy IV Protonix Severe acute blood loss anemia Hb 4.6-3.4 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 and refused blood transfusion Plasma expanders in the form of Hespan ordered Patient is aware of the seriousness of his severe anemia Leading to if not corrected promptly ESRD needing dialysis Nephrology consulted , HD per schedule Hypertension Moderate control , labetalol IV As needed medications Closely monitor Hyperkalemia Hyperkalemia treated monitor electrolytes Jehovah witness patient ; Patient has life-threatening GI bleeding and acute blood loss anemia GI Dr. Billy and I personally discussed with the patient at length The risks and consequences of refusing blood transfusion Patient verbalized understanding and confirmed that even if it is life- threatening. He would not receive blood transfusion due to his jainism beliefs DVT prophylaxis Continue SCDs DNR status Follow GI and renal recommendations We will closely monitor the patient and adjust management as needed. Patient poor prognosis if he does not comply with treatment Critical care time 45 minutes The high probability of a clinically significant, sudden or life threatening deterioration of the [multi] system(s) required my full and direct attention, intervention and personal management. The aggregate critical care time was [45] minutes. This time is in addition to time spent performing reported procedures but includes the following: [x] Data Review and interpretation [x] Patient assessment and monitoring of vital signs [x] Documentation [x] Medication orders and management History Interval history: I have seen and examined the patient at the bedside today in [facility] Patient's chart and medications reviewed Admitted with GI bleeding and severe anemia with her hemoglobin of 4.6 Jehovah witness patient, adamantly refuses blood transfusion Understand the seriousness of severe anemia and bleeding which can lead to if not treated. Patient is alert and awake oriented x3 Mild distress, Vital signs reviewed Hospitalist Physical - Constitutional Vitals: Temp Pulse Resp BP Pulse Ox 98.8 F 108 H 16 149/97 94 03/27/21 08:00 03/27/21 06:20 03/27/21 06:20 03/27/21 06:30 03/27/21 06:30 General appearance: Present: mild distress, well-nourished, obese - EENT Eyes: Present: PERRL, EOM intact - Neck Neck: Present: supple, normal ROM - Respiratory Respiratory effort: normal Respiratory: bilateral: diminished, negative: rales, rhonchi, wheezing - Cardiovascular Rhythm: regular Heart Sounds: Present: S1 & S2 - Extremities Extremities: no ischemia, No edema - Abdominal General gastrointestinal: soft, non-tender, non-distended, normal bowel sounds - Integumentary Integumentary: Present: clear, warm - Psychiatric Psychiatric: appropriate mood/affect, cooperative - Neurologic Neurologic: moves all extremities Results - Labs CBC & Chem 7: 03/27/21 09:45 03/27/21 09:45 Labs: Laboratory Last Values WBC 14.8 K/mm3 (4.5-11.0) H 03/26/21 13:10 RBC 1.66 M/mm3 (3.65-5.03) L 03/26/21 13:10 Hgb 4.6 gm/dl (11.8-15.2) L* 03/26/21 13:10 Hct 14.0 % (35.5-45.6) L* 03/26/21 13:10 MCV 85 fl (84-94) 03/26/21 13:10 MCH 28 pg (28-32) 03/26/21 13:10 MCHC 33 % (32-34) 03/26/21 13:10 RDW 19.0 % (13.2-15.2) H 03/26/21 13:10 Plt Count 169 K/mm3 (140-440) 03/26/21 13:10 PT 15.4 Sec. (12.2-14.9) H 03/26/21 13:10 INR 1.22 (0.87-1.13) H 03/26/21 13:10 APTT 48.4 Sec. (24.2-36.6) H 03/26/21 13:10 Sodium 140 mmol/L (137-145) 03/26/21 13:10 Potassium 5.4 mmol/L (3.6-5.0) H 03/26/21 13:10 Chloride 99.4 mmol/L (98-107) 03/26/21 13:10 Carbon Dioxide 19 mmol/L (22-30) L 03/26/21 13:10 Anion Gap 27 mmol/L 03/26/21 13:10 BUN 98 mg/dL (9-20) H 03/26/21 13:10 Creatinine 11.5 mg/dL (0.8-1.3) H 03/26/21 13:10 Estimated GFR 6 ml/min 03/26/21 13:10 BUN/Creatinine Ratio 9 % 03/26/21 13:10 Glucose 91 mg/dL (75-100) 03/26/21 13:10 Calcium 8.4 mg/dL (8.4-10.2) 03/26/21 13:10 Magnesium 2.00 mg/dL (1.7-2.3) 03/26/21 13:10 Total Bilirubin 0.20 mg/dL (0.1-1.2) 03/26/21 13:10 AST 10 units/L (5-40) 03/26/21 13:10 ALT 5 units/L (7-56) L 03/26/21 13:10 Alkaline Phosphatase 57 units/L (35-129) 03/26/21 13:10 Total Creatine Kinase 218 units/L (55-170) H 03/26/21 13:10 Total Protein 5.9 g/dL (6.3-8.2) L 03/26/21 13:10 Albumin 3.7 g/dL (3.9-5) L 03/26/21 13:10 Albumin/Globulin Ratio 1.7 % 03/26/21 13:10 Hepatitis A IgM Ab Non-reactive (NonReactive) 03/26/21 16:00 Hep Bs Antigen Non-reactive (Negative) 03/26/21 16:00 Hep B Core IgM Ab Non-reactive (NonReactive) 03/26/21 16:00 Hepatitis C Antibody Non-reactive (NonReactive) 03/26/21 16:00 Blood Type O POSITIVE 03/26/21 13:42 Antibody Screen Negative 03/26/21 13:42 Davis/IV: Voiding Method Urinal Active Medications - Current Medications Current Medications: Generic Name Dose Route Start Last Admin Trade Name Freq PRN Reason Stop Dose Admin Acetaminophen 650 mg 03/26/21 20:32 Acetaminophen 325 Mg Tab PO Q4H PRN Pain MILD(1-3)/Fever >100.5/REA Dextrose 50 ml 03/26/21 15:00 03/26/21 15:18 Dextrose 50% In Water (25gm) 50 Ml Syringe IV 50 ml Q30MIN PRN Administration Hypoglycemia Protocol Hydromorphone HCl 0.5 mg 03/26/21 20:32 03/27/21 05:54 Hydromorphone 1 Mg/1 Ml Inj IV 0.5 mg Q3H PRN Administration Pain , Severe (7-10) Metoclopramide HCl 10 mg 03/26/21 20:32 Metoclopramide 10 Mg/2 Ml Inj IV Q6H PRN Nausea And Vomiting Morphine Sulfate 2 mg 03/26/21 20:32 03/27/21 03:46 Morphine 2 Mg/1 Ml Inj IV 2 mg Q4H PRN Administration Pain, Moderate (4-6) Ondansetron HCl 4 mg 03/26/21 20:32 Ondansetron 4 Mg/2 Ml Inj IV Q3H PRN Nausea And Vomiting Pantoprazole Sodium 40 mg 03/26/21 22:00 03/26/21 22:45 Pantoprazole 40 Mg Inj IV Not Given BID PRATIMA Sodium Chloride 10 ml 03/26/21 22:00 03/26/21 22:45 Sodium Chloride 0.9% 10 Ml Flush Syringe IV 10 ml BID PRATIMA Administration Sodium Chloride 10 ml 03/26/21 20:32 Sodium Chloride 0.9% 10 Ml Flush Syringe IV PRN PRN LINE FLUSH
[2021-03-27] MEDS: PANTOPRAZOLE 40 MG INJ IV SCH ×2 (09:03→22:50)
[2021-03-27 10:36] LABS: Calcium 7.7 mg/dL (8.4-10.2)
[2021-03-27 10:37] LABS: Basophils % (Auto) 0.3 % (0.0-1.8); Eosinophils % (Auto) 0.2 % (0.0-4.3); Lymphocytes # (Auto) 2.9 K/mm3 (1.2-5.4); Lymphocytes % (Auto) 24.5 % (13.4-35.0); Mean Corpuscular HGB Conc 34 % (32-34); Mean Corpuscular Volume 84 fl (84-94); Monocytes % (Auto) 8.1 % (0.0-7.3); Platelet Count 169 K/mm3 (140-440); Red Blood Count 1.21 M/mm3 (3.65-5.03); Red Cell Distribution Width 18.7 % (13.2-15.2)
[2021-03-27 10:39] LABS: Hematocrit 10.2 % (35.5-45.6); Hemoglobin 3.4 gm/dl (11.8-15.2)
--- NOTE | 2021-03-27 13:02 | Progress Note ---
Assessment and Plan Assessment: ESRD on HD Anemia in CKD Hypertension Hyperkalemia Weakness Nausea and vomiting Plan: Patient's recent HGB is noted to be 3.4 today. Patient is not hemodynamically stable for HD today, so will cancel today's HD order Patient is a Mu-ism and does not want any blood transfusions. Hospitalist plans to give Hespan. Will order daily SQ Epogen of 20,000 units Iron level 37. Will order IV iron with Venofer 125 mg QOD x 8 doses. First dose today GI bleed-awaiting EGD when stable per GI. On IV Protonix. Currently NPO Hyperkalemia- currently NPO so will order insulin/D50/Calcium Gluconate and Sodium Bicarbonate coctail Monitor BMP Renally dose medications Strict I&O's monitoring Assess dialysis needs daily Plan of care reviewed with Dr. Aquino Subjective Date of service: 03/27/21 Principal diagnosis: GI Bleed Interval history: Patient seen lying in bed. He is sleeping heavily. Objective - Vital Signs Vital signs: Vital Signs - 12hr 03/27/21 03/27/21 03/27/21 02:00 02:28 02:30 Temperature Pulse Rate 111 H 112 H Respiratory 17 15 15 Rate Blood Pressure O2 Sat by Pulse 98 100 Oximetry 03/27/21 03/27/21 03/27/21 02:40 02:50 03:00 Temperature Pulse Rate 115 H 116 H 112 H Respiratory 14 17 15 Rate Blood Pressure 181/95 170/106 O2 Sat by Pulse 94 95 92 Oximetry 03/27/21 03/27/21 03/27/21 03:10 03:20 03:30 Temperature Pulse Rate 113 H 115 H 114 H Respiratory 14 16 13 Rate Blood Pressure 170/106 170/106 170/106 O2 Sat by Pulse 94 92 96 Oximetry 03/27/21 03/27/21 03/27/21 03:40 03:44 03:45 Temperature 99.5 F Pulse Rate 112 H 114 H Respiratory 15 Rate Blood Pressure 170/106 170/106 O2 Sat by Pulse 96 Oximetry 03/27/21 03/27/21 03/27/21 03:46 03:50 04:00 Temperature Pulse Rate 104 H 101 H Respiratory 15 12 13 Rate Blood Pressure 170/106 154/90 O2 Sat by Pulse 96 94 Oximetry 03/27/21 03/27/21 03/27/21 04:10 04:20 04:30 Temperature Pulse Rate 102 H 104 H 103 H Respiratory 13 14 14 Rate Blood Pressure 154/90 154/90 154/90 O2 Sat by Pulse 97 96 97 Oximetry 03/27/21 03/27/21 03/27/21 04:40 04:50 05:00 Temperature Pulse Rate 102 H 103 H 105 H Respiratory 13 13 12 Rate Blood Pressure 154/90 154/90 147/95 O2 Sat by Pulse 96 95 100 Oximetry 03/27/21 03/27/21 03/27/21 05:10 05:20 05:30 Temperature Pulse Rate 107 H 106 H 106 H Respiratory 14 13 14 Rate Blood Pressure 147/95 147/95 147/95 O2 Sat by Pulse 97 97 97 Oximetry 03/27/21 03/27/21 03/27/21 05:40 05:50 06:00 Temperature Pulse Rate 107 H 107 H 108 H Respiratory 13 15 14 Rate Blood Pressure 147/95 147/95 149/97 O2 Sat by Pulse 97 96 94 Oximetry 03/27/21 03/27/21 03/27/21 06:10 06:20 06:30 Temperature Pulse Rate 108 H 108 H Respiratory 13 16 Rate Blood Pressure 149/97 149/97 149/97 O2 Sat by Pulse 98 96 94 Oximetry 03/27/21 03/27/21 03/27/21 06:40 06:50 07:00 Temperature Pulse Rate 111 H 108 H 110 H Respiratory Rate Blood Pressure 149/97 149/97 165/95 O2 Sat by Pulse 94 94 93 Oximetry 03/27/21 03/27/21 03/27/21 07:10 07:20 07:30 Temperature Pulse Rate 109 H 108 H 110 H Respiratory Rate Blood Pressure 165/95 165/95 165/95 O2 Sat by Pulse 98 95 95 Oximetry 03/27/21 03/27/21 03/27/21 07:40 07:50 08:00 Temperature 98.8 F Pulse Rate 110 H 110 H 109 H Respiratory Rate Blood Pressure 165/95 165/95 158/97 O2 Sat by Pulse 95 96 96 Oximetry 03/27/21 03/27/21 03/27/21 08:10 08:20 08:30 Temperature Pulse Rate 110 H 109 H 109 H Respiratory Rate Blood Pressure 158/97 158/97 158/97 O2 Sat by Pulse 96 97 98 Oximetry 03/27/21 03/27/21 03/27/21 08:40 08:50 09:00 Temperature Pulse Rate 109 H 110 H 108 H Respiratory Rate Blood Pressure 158/97 158/97 183/101 O2 Sat by Pulse 97 96 95 Oximetry 03/27/21 03/27/21 03/27/21 09:10 09:20 09:30 Temperature Pulse Rate 110 H 109 H 110 H Respiratory Rate Blood Pressure 183/101 183/101 183/101 O2 Sat by Pulse 100 98 98 Oximetry 03/27/21 03/27/21 03/27/21 09:40 09:50 10:00 Temperature Pulse Rate 111 H 107 H 108 H Respiratory Rate Blood Pressure 183/101 183/101 182/91 O2 Sat by Pulse 99 97 94 Oximetry 03/27/21 03/27/21 03/27/21 10:10 10:20 12:00 Temperature 98 F Pulse Rate 107 H 108 H Respiratory Rate Blood Pressure 183/101 183/101 O2 Sat by Pulse 97 99 Oximetry - General Appearance General appearance: other (Sleeping.) EENT: ATNC Neck: no JVD Respiratory: Present: Decreased Breath Sounds Cardiology: S1S2 Gastrointestinal: normoactive bowel sounds Integumentary: warm and dry Neurologic: other (Sleeping) Musculoskeletal: other (AVF to left arm intact) - Lab 03/27/21 09:45 03/27/21 09:45 Most recent lab results Calcium 7.7 mg/dL (8.4-10.2) L 03/27/21 09:45 Phosphorus 5.70 mg/dL (2.5-4.5) H 03/27/21 09:45 Magnesium 2.00 mg/dL (1.7-2.3) 03/26/21 13:10 Medications & Allergies - Medications Allergies/Adverse Reactions: Allergies clonidine Allergy (Verified 02/21/21 14:59) Unknown lymph node swelling hydralazine Allergy (Verified 02/21/21 15:00) Unknown lymph node swelling Home Medications: Home Medications Medication Instructions Recorded Confirmed Last Taken Type Losartan [Cozaar] 100 mg PO QDAY 03/26/21 03/26/21 Unknown History NIFEdipine [Nifedipine ER] 90 mg PO DAILY 03/26/21 03/26/21 Unknown History carvediloL [Coreg] 25 mg PO BID 03/26/21 03/26/21 Unknown History Active Medications: Generic Name Dose Route Start Last Admin Trade Name Alondra PRN Reason Stop Dose Admin Acetaminophen 650 mg 03/26/21 20:32 Acetaminophen 325 Mg Tab PO Q4H PRN Pain MILD(1-3)/Fever >100.5/REA Dextrose 50 ml 03/26/21 15:00 03/26/21 15:18 Dextrose 50% In Water (25gm) 50 Ml Syringe IV 50 ml Q30MIN PRN Administration Hypoglycemia Protocol Hydromorphone HCl 0.5 mg 03/26/21 20:32 03/27/21 05:54 Hydromorphone 1 Mg/1 Ml Inj IV 0.5 mg Q3H PRN Administration Pain , Severe (7-10) Labetalol HCl 10 mg 03/27/21 09:30 Labetalol 20 Mg/4 Ml Inj IV Q4H PRN Hypertension Metoclopramide HCl 10 mg 03/26/21 20:32 Metoclopramide 10 Mg/2 Ml Inj IV Q6H PRN Nausea And Vomiting Morphine Sulfate 2 mg 03/26/21 20:32 03/27/21 08:43 Morphine 2 Mg/1 Ml Inj IV 2 mg Q4H PRN Administration Pain, Moderate (4-6) Ondansetron HCl 4 mg 03/26/21 20:32 Ondansetron 4 Mg/2 Ml Inj IV Q3H PRN Nausea And Vomiting Pantoprazole Sodium 40 mg 03/26/21 22:00 03/27/21 09:03 Pantoprazole 40 Mg Inj IV 40 mg BID PRATIMA Administration Sodium Chloride 10 ml 03/26/21 22:00 03/27/21 09:03 Sodium Chloride 0.9% 10 Ml Flush Syringe IV 10 ml BID PRATIMA Administration Sodium Chloride 10 ml 03/26/21 20:32 Sodium Chloride 0.9% 10 Ml Flush Syringe IV PRN PRN LINE FLUSH
[2021-03-27] MEDS ORDERED: SODIUM BICARB 8.4% 50 MEQ/50 ML SYRINGE IV SCH (13:30)
[2021-03-27] MEDS ORDERED: DEXTROSE 50% IN WATER (25GM) 50 ML SYRINGE IV SCH (13:30)
[2021-03-27] MEDS ORDERED: INSULIN REGULAR, HUMAN 100 UNITS/1 ML IV SCH (13:30)
[2021-03-27] MEDS ORDERED: EPOETIN ALFA 2,000 UNIT/1 ML VIAL SUB-Q SCH (14:00)
[2021-03-27] MEDS ORDERED: SODIUM FERRIC GLUCON/SUCRO 125 MG in SODIUM CHLORIDE 0.9% 100 ML IV ONE (14:00)
[2021-03-27] MEDS ORDERED: CALCIUM GLUCONATE 1,000 MG in SODIUM CHLORIDE 0.9% 100 ML IV ONE (14:00)
[2021-03-27] MEDS ORDERED: D5W/0.9% NACL 1,000 ML IV SCH (14:00)
[2021-03-27] MEDS ORDERED: WATER FOR IRRIG STERILE 1,000 ML BOTTLE ONE (15:55)
[2021-03-27] MEDS ORDERED: WATER FOR IRRIG STERILE 250 ML BOTTLE IR ONE (15:55)
[2021-03-27] MEDS ORDERED: SODIUM CHLORIDE 0.9% 500 ML 500 ML IV SCH (16:00)
[2021-03-27] MEDS ORDERED: propofoL 200 MG/20 ML VIAL IV ONE (16:11)
[2021-03-27] MEDS ORDERED: LIDOCAINE MPF (2%) 20 MG/1 ML VIAL 5 ML ONE ×2 (16:11)
--- NOTE | 2021-03-27 16:40 | Event Note ---
Date: 03/27/21 I evaluated the patient with GI lab staff/Anaesthesia. The patient is now declining the EGD, and has decided he wants to get a blood transfusion, and proceed to hemodialysis. I explained that delay in blood transfusion (his refusal) has now compromised his care by delaying endoscopy and dialysis. He has rescinded his Jehovah Witness status. He refuses to do any endoscopic procedures at this time. I have informed the Renal service and IMS. I will sign off; please call if needed.
[2021-03-27] MEDS: EPOETIN ALFA-EPBX 20,000 UNIT/1 ML VIAL SUB-Q SCH (21:58)
[2021-03-27] MEDS ORDERED: diphenhydrAMINE 50 MG/ML VIAL IV ONE (23:33)
[2021-03-28 07:40] LABS: Basophils % (Auto) 0.4 % (0.0-1.8); Eosinophils # (Auto) 0.1 K/mm3 (0.0-0.4); Eosinophils % (Auto) 0.7 % (0.0-4.3); Lymphocytes # (Auto) 3.1 K/mm3 (1.2-5.4); Lymphocytes % (Auto) 27.4 % (13.4-35.0); Mean Corpuscular HGB Conc 34 % (32-34); Mean Corpuscular Volume 87 fl (84-94); Monocytes # (Auto) 1.1 K/mm3 (0.0-0.8); Platelet Count 142 K/mm3 (140-440); Red Blood Count 1.73 M/mm3 (3.65-5.03); Red Cell Distribution Width 17.1 % (13.2-15.2)
[2021-03-28 07:46] LABS: Hemoglobin 5.1 gm/dl (11.8-15.2)
[2021-03-28 07:48] LABS: Calcium 7.4 mg/dL (8.4-10.2)
[2021-03-28] MEDS ORDERED: SODIUM CHLORIDE 0.9% 500 ML 500 ML IV NR ×2 (08:23→13:15)
[2021-03-28] MEDS: PANTOPRAZOLE 40 MG INJ IV SCH ×2 (09:45→22:51)
[2021-03-28] MEDS ORDERED: SODIUM FERRIC GLUCON/SUCRO 125 MG in SODIUM CHLORIDE 0.9% 100 ML IV SCH (10:00)
[2021-03-28] MEDS: HYDROmorphone 1 MG/1 ML INJ IV PRN ×2 (10:37→17:28)
[2021-03-28] MEDS: EPOETIN ALFA-EPBX 20,000 UNIT/1 ML VIAL SUB-Q SCH (11:00)
--- NOTE | 2021-03-28 11:21 | Progress Note ---
Assessment and Plan ESRD on HD Anemia in CKD Hypertension Hyperkalemia Weakness Nausea and vomiting Plan: HD again today with blood transfusion GI bleed-awaiting EGD when stable per GI. On IV Protonix. Monitor BMP Renally dose medications Strict I&O's monitoring Assess dialysis needs daily Subjective Date of service: 03/28/21 Principal diagnosis: GI Bleed Interval history: tolerated HD and blood transfusion yesterday Objective - Vital Signs Vital signs: Vital Signs - 12hr 03/27/21 03/28/21 03/28/21 23:30 00:00 00:31 Temperature 98.7 F Pulse Rate 93 H 100 H 99 H Pulse Rate [ 96 H From Monitor] Respiratory 14 21 19 Rate Blood Pressure 159/80 174/115 177/84 O2 Sat by Pulse 96 96 97 Oximetry 03/28/21 03/28/21 03/28/21 01:00 01:31 02:01 Temperature Pulse Rate 94 H 92 H 99 H Pulse Rate [ From Monitor] Respiratory 14 15 14 Rate Blood Pressure 179/86 162/89 O2 Sat by Pulse 97 Oximetry 03/28/21 03/28/21 03/28/21 02:30 03:00 03:30 Temperature Pulse Rate 96 H 95 H 94 H Pulse Rate [ From Monitor] Respiratory 15 16 16 Rate Blood Pressure 157/87 151/83 136/88 O2 Sat by Pulse Oximetry 03/28/21 03/28/21 03/28/21 04:00 04:30 05:00 Temperature 98 F Pulse Rate 93 H 90 91 H Pulse Rate [ 96 H From Monitor] Respiratory 15 16 15 Rate Blood Pressure 155/86 148/84 143/86 O2 Sat by Pulse 99 Oximetry 03/28/21 03/28/21 03/28/21 05:30 06:00 06:30 Temperature Pulse Rate 94 H 91 H 88 Pulse Rate [ From Monitor] Respiratory 17 14 16 Rate Blood Pressure 143/88 153/91 145/71 O2 Sat by Pulse Oximetry 03/28/21 03/28/21 03/28/21 07:01 07:31 08:01 Temperature Pulse Rate 89 89 96 H Pulse Rate [ From Monitor] Respiratory 15 14 11 L Rate Blood Pressure 153/71 156/76 156/76 O2 Sat by Pulse Oximetry 03/28/21 03/28/21 08:35 09:44 Temperature Pulse Rate 91 H Pulse Rate [ From Monitor] Respiratory Rate Blood Pressure 156/76 156/74 O2 Sat by Pulse 98 Oximetry - General Appearance General appearance: well-developed, well-nourished, appears stated age EENT: ATNC, PERRL, mucous membranes moist Neck: no JVD, no carotid bruit Respiratory: Present: Clear to Ascultation. Absent: Rales, Ronchi Cardiology: regular, S1S2 Gastrointestinal: normoactive bowel sounds, no tenderness, no distended Integumentary: no rash, warm and dry Neurologic: no focal deficit, no asterixis, alert and oriented x3 Musculoskeletal: other (no edema in BLE) - Lab 03/28/21 07:17 03/28/21 07:17 Most recent lab results Calcium 7.4 mg/dL (8.4-10.2) L 03/28/21 07:17 Phosphorus 5.70 mg/dL (2.5-4.5) H 03/27/21 09:45 Magnesium 2.00 mg/dL (1.7-2.3) 03/26/21 13:10 Medications & Allergies - Medications Allergies/Adverse Reactions: Allergies clonidine Allergy (Verified 02/21/21 14:59) Unknown lymph node swelling hydralazine Allergy (Verified 02/21/21 15:00) Unknown lymph node swelling Home Medications: Home Medications Medication Instructions Recorded Confirmed Last Taken Type Losartan [Cozaar] 100 mg PO QDAY 03/26/21 03/26/21 Unknown History NIFEdipine [Nifedipine ER] 90 mg PO DAILY 03/26/21 03/26/21 Unknown History carvediloL [Coreg] 25 mg PO BID 03/26/21 03/26/21 Unknown History Active Medications: Generic Name Dose Route Start Last Admin Trade Name Freq PRN Reason Stop Dose Admin Acetaminophen 650 mg 03/26/21 20:32 Acetaminophen 325 Mg Tab PO Q4H PRN Pain MILD(1-3)/Fever >100.5/REA Dextrose 50 ml 03/26/21 15:00 03/26/21 15:18 Dextrose 50% In Water (25gm) 50 Ml Syringe IV 50 ml Q30MIN PRN Administration Hypoglycemia Protocol Hydromorphone HCl 0.5 mg 03/26/21 20:32 03/28/21 10:37 Hydromorphone 1 Mg/1 Ml Inj IV 0.5 mg Q3H PRN Administration Pain , Severe (7-10) Dextrose/Sodium Chloride 1,000 mls @ 100 mls/hr 03/27/21 14:00 03/27/21 15:45 D5ns IV 100 mls/hr DIRECT PRATIMA Administration Sodium Chloride 500 mls @ 0 mls/hr 03/28/21 08:23 Nacl 0.9% 500 Ml IV 03/28/21 20:00 ONCE NR As Directed Ferric Sodium Gluconate 110 mls @ 100 mls/hr 03/28/21 10:00 Complex 125 mg/ Sodium IV 04/05/21 09:59 Chloride QDAY PRATIMA Labetalol HCl 10 mg 03/27/21 09:30 Labetalol 20 Mg/4 Ml Inj IV Q4H PRN Hypertension Labetalol HCl 20 mg 03/27/21 14:00 03/28/21 09:44 Labetalol 20 Mg/4 Ml Inj IV 20 mg Q6H PRATIMA Administration Metoclopramide HCl 10 mg 03/26/21 20:32 Metoclopramide 10 Mg/2 Ml Inj IV Q6H PRN Nausea And Vomiting Morphine Sulfate 2 mg 03/26/21 20:32 03/27/21 19:40 Morphine 2 Mg/1 Ml Inj IV 2 mg Q4H PRN Administration Pain, Moderate (4-6) Ondansetron HCl 4 mg 03/26/21 20:32 Ondansetron 4 Mg/2 Ml Inj IV Q3H PRN Nausea And Vomiting Pantoprazole Sodium 40 mg 03/26/21 22:00 03/28/21 09:45 Pantoprazole 40 Mg Inj IV 40 mg BID PRATIMA Administration Sodium Chloride 10 ml 03/26/21 22:00 03/28/21 09:45 Sodium Chloride 0.9% 10 Ml Flush Syringe IV 10 ml BID PRATIMA Administration Sodium Chloride 10 ml 03/26/21 20:32 Sodium Chloride 0.9% 10 Ml Flush Syringe IV PRN PRN LINE FLUSH
--- NOTE | 2021-03-28 14:11 | Progress Note ---
Assessment and Plan Assessment and plan: Assessment and Plan Assessment and plan: 45-year-old male patient who is a Jehovah witness with significant past medical history of hypertension , ESRD on hemodialysis is admitted through emergency room with severe GI bleeding and acute blood loss anemia with hemoglobin of 4.6- 3.4 patient refused blood transfusion, GI and nephrology following Patient counseled,blood transfusion if he agrees Severe GI bleeding n.p.o. status, GI evaluated, possible endoscopy IV Protonix Severe acute blood loss anemia Hb 4.6-3.4 Patient is a Restorationist and refused blood transfusion Plasma expanders in the form of Hespan ordered Patient is aware of the seriousness of his severe anemia Leading to if not corrected promptly ESRD needing dialysis Nephrology consulted , HD per schedule Hypertension Moderate control , labetalol IV As needed medications Closely monitor Hyperkalemia Hyperkalemia treated monitor electrolytes Jehovah witness patient ; Patient has life-threatening GI bleeding and acute blood loss anemia GI Dr. Billy and I personally discussed with the patient at length The risks and consequences of refusing blood transfusion Patient verbalized understanding and confirmed that even if it is life- threatening. He would not receive blood transfusion due to his episcopalian beliefs DVT prophylaxis Continue SCDs DNR status Follow GI and renal recommendations We will closely monitor the patient and adjust management as needed. Patient poor prognosis if he does not comply with treatment Critical care time 45 minutes The high probability of a clinically significant, sudden or life threatening deterioration of the [multi] system(s) required my full and direct attention, intervention and personal management. The aggregate critical care time was [45] minutes. This time is in addition to time spent performing reported procedures but includes the following: [x] Data Review and interpretation [x] Patient assessment and monitoring of vital signs [x] Documentation [x] Medication orders and management 03/28/21 Patient has no episode of GI bleeding. Patient got 3 unit of packed red blood cells with hemodialysis yesterday Hemoglobin is 5.1 and hematocrit 15.0 today. We are giving 2 unit of packed red cells with hemodialysis today again Patient is seen and evaluated by GI and possible endoscopy/EGD in the morning Recheck CBC BMP in the morning Nephrology follow-up Continue current management History Interval history: Patient is seen and examined at the bedside Patient has no episode of GI bleeding. No nausea vomiting Patient is hungry. We have started clear liquid diet, n.p.o. after midnight for possible EGD in the morning Vitals are stable Hospitalist Physical - Constitutional Vitals: Temp Pulse Resp BP Pulse Ox 98.3 F 90 12 158/81 98 03/28/21 14:00 03/28/21 14:00 03/28/21 14:00 03/28/21 14:00 03/28/21 08:35 General appearance: Present: mild distress, well-nourished, obese Results - Labs CBC & Chem 7: 03/28/21 07:17 03/28/21 07:17 Labs: Laboratory Last Values WBC 11.2 K/mm3 (4.5-11.0) H 03/28/21 07:17 RBC 1.73 M/mm3 (3.65-5.03) L 03/28/21 07:17 Hgb 5.1 gm/dl (11.8-15.2) L* 03/28/21 07:17 Hct 15.0 % (35.5-45.6) L* 03/28/21 07:17 MCV 87 fl (84-94) 03/28/21 07:17 MCH 29 pg (28-32) 03/28/21 07:17 MCHC 34 % (32-34) 03/28/21 07:17 RDW 17.1 % (13.2-15.2) H 03/28/21 07:17 Plt Count 142 K/mm3 (140-440) 03/28/21 07:17 Lymph % (Auto) 27.4 % (13.4-35.0) 03/28/21 07:17 Hughes % (Auto) 10.0 % (0.0-7.3) H 03/28/21 07:17 Eos % (Auto) 0.7 % (0.0-4.3) 03/28/21 07:17 Baso % (Auto) 0.4 % (0.0-1.8) 03/28/21 07:17 Lymph # (Auto) 3.1 K/mm3 (1.2-5.4) 03/28/21 07:17 Hughes # (Auto) 1.1 K/mm3 (0.0-0.8) H 03/28/21 07:17 Eos # (Auto) 0.1 K/mm3 (0.0-0.4) 03/28/21 07:17 Baso # (Auto) 0.0 K/mm3 (0.0-0.1) 03/28/21 07:17 Seg Neutrophils % 61.5 % (40.0-70.0) 03/28/21 07:17 Seg Neutrophils # 6.9 K/mm3 (1.8-7.7) 03/28/21 07:17 PT 15.4 Sec. (12.2-14.9) H 03/26/21 13:10 INR 1.22 (0.87-1.13) H 03/26/21 13:10 APTT 48.4 Sec. (24.2-36.6) H 03/26/21 13:10 Sodium 141 mmol/L (137-145) 03/28/21 07:17 Potassium 4.3 mmol/L (3.6-5.0) D 03/28/21 07:17 Chloride 102.1 mmol/L (98-107) 03/28/21 07:17 Carbon Dioxide 27 mmol/L (22-30) D 03/28/21 07:17 Anion Gap 16 mmol/L 03/28/21 07:17 BUN 49 mg/dL (9-20) H 03/28/21 07:17 Creatinine 8.8 mg/dL (0.8-1.3) H 03/28/21 07:17 Estimated GFR 8 ml/min 03/28/21 07:17 BUN/Creatinine Ratio 6 % 03/28/21 07:17 Glucose 87 mg/dL (75-100) 03/28/21 07:17 POC Glucose 98 mg/dL (70-105) 03/28/21 11:50 Calcium 7.4 mg/dL (8.4-10.2) L 03/28/21 07:17 Phosphorus 5.70 mg/dL (2.5-4.5) H 03/27/21 09:45 Magnesium 2.00 mg/dL (1.7-2.3) 03/26/21 13:10 Iron 37 ug/dL (49-181) L 03/27/21 09:45 TIBC 215 mcg/dL (250-450) L 03/27/21 09:45 Ferritin 119.0 ng/mL (30.0-300.0) 03/27/21 09:45 Total Bilirubin 0.20 mg/dL (0.1-1.2) 03/26/21 13:10 AST 10 units/L (5-40) 03/26/21 13:10 ALT 5 units/L (7-56) L 03/26/21 13:10 Alkaline Phosphatase 57 units/L (35-129) 03/26/21 13:10 Total Creatine Kinase 218 units/L (55-170) H 03/26/21 13:10 Total Protein 5.9 g/dL (6.3-8.2) L 03/26/21 13:10 Albumin 3.7 g/dL (3.9-5) L 03/26/21 13:10 Albumin/Globulin Ratio 1.7 % 03/26/21 13:10 Hepatitis A IgM Ab Non-reactive (NonReactive) 03/26/21 16:00 Hep Bs Antigen Non-reactive (Negative) 03/26/21 16:00 Hep B Core IgM Ab Non-reactive (NonReactive) 03/26/21 16:00 Hepatitis C Antibody Non-reactive (NonReactive) 03/26/21 16:00 Blood Type O POSITIVE 03/26/21 13:42 Antibody Screen Negative 03/26/21 13:42 Crossmatch See Detail 03/26/21 13:42 Davis/IV: Voiding Method Urinal Active Medications - Current Medications Current Medications: Generic Name Dose Route Start Last Admin Trade Name Freq PRN Reason Stop Dose Admin Acetaminophen 650 mg 03/26/21 20:32 Acetaminophen 325 Mg Tab PO Q4H PRN Pain MILD(1-3)/Fever >100.5/REA Dextrose 50 ml 03/26/21 15:00 03/26/21 15:18 Dextrose 50% In Water (25gm) 50 Ml Syringe IV 50 ml Q30MIN PRN Administration Hypoglycemia Protocol Hydromorphone HCl 0.5 mg 03/26/21 20:32 03/28/21 10:37 Hydromorphone 1 Mg/1 Ml Inj IV 0.5 mg Q3H PRN Administration Pain , Severe (7-10) Dextrose/Sodium Chloride 1,000 mls @ 100 mls/hr 03/27/21 14:00 03/27/21 15:45 D5ns IV 100 mls/hr DIRECT PRATIMA Administration Sodium Chloride 500 mls @ 0 mls/hr 03/28/21 08:23 Nacl 0.9% 500 Ml IV 03/28/21 20:00 ONCE NR As Directed Sodium Chloride 500 mls @ 0 mls/hr 03/28/21 13:15 Nacl 0.9% 500 Ml IV 03/28/21 20:00 ONCE NR As Directed Labetalol HCl 10 mg 03/27/21 09:30 Labetalol 20 Mg/4 Ml Inj IV Q4H PRN Hypertension Labetalol HCl 20 mg 03/27/21 14:00 03/28/21 09:44 Labetalol 20 Mg/4 Ml Inj IV 20 mg Q6H PRATIMA Administration Metoclopramide HCl 10 mg 03/26/21 20:32 Metoclopramide 10 Mg/2 Ml Inj IV Q6H PRN Nausea And Vomiting Morphine Sulfate 2 mg 03/26/21 20:32 03/27/21 19:40 Morphine 2 Mg/1 Ml Inj IV 2 mg Q4H PRN Administration Pain, Moderate (4-6) Ondansetron HCl 4 mg 03/26/21 20:32 Ondansetron 4 Mg/2 Ml Inj IV Q3H PRN Nausea And Vomiting Pantoprazole Sodium 40 mg 03/26/21 22:00 03/28/21 09:45 Pantoprazole 40 Mg Inj IV 40 mg BID PRATIMA Administration Sodium Chloride 10 ml 03/26/21 22:00 03/28/21 09:45 Sodium Chloride 0.9% 10 Ml Flush Syringe IV 10 ml BID PRATIMA Administration Sodium Chloride 10 ml 03/26/21 20:32 Sodium Chloride 0.9% 10 Ml Flush Syringe IV PRN PRN LINE FLUSH Nutrition/Malnutrition Assess - Malnutrition Assessment Minimum of two criteria: No - Attestation Statement I have reviewed and agreed w/ Malnutrition eval & tx plan: Yes
--- NOTE | 2021-03-28 17:26 | Electrocardiograph Report ---
[facility] Test Date: 2021-03-26 Test Time: 13:52:14 Pat Name: REX GONG Department: Room: A267 Gender: M Classification And Treatment Director: SHIRLENE : 1975 Requested By: GAUDENCIO VINCENT Order Number: [id number] Reading MD: Josh Lozano Measurements Intervals [place] Rate: 102 P: 100 SC: 178 QRS: 44 QRSD: 104 T: 134 QT: 379 QTc: 494 Interpretive Statements Sinus tachycardia Abnormal T, consider ischemia, lateral leads Compared to ECG 02/21/2021 14:29:54 Sinus rhythm no longer present T-wave abnormality still present Possible ischemia still present Electronically Signed On 03-28-2021 17:25:56 EDT by Josh Lozano
[2021-03-28] MEDS: MORPHINE 2 MG/1 ML INJ IV PRN (22:50)
[2021-03-29] MEDS: PANTOPRAZOLE 40 MG INJ IV SCH ×2 (09:07→22:39)
[2021-03-29 09:14] LABS: Hematocrit 23.8 % (35.5-45.6); Hemoglobin 7.7 gm/dl (11.8-15.2); Mean Corpuscular HGB Conc 32 % (32-34); Mean Corpuscular Volume 91 fl (84-94); Platelet Count 257 K/mm3 (140-440); Red Blood Count 2.62 M/mm3 (3.65-5.03); Red Cell Distribution Width 16.2 % (13.2-15.2)
[2021-03-29 09:35] LABS: Calcium 7.9 mg/dL (8.4-10.2)
[2021-03-29 10:17] LABS: Total Cells Counted 100
[2021-03-29 10:18] LABS: Anisocytosis 1+
[2021-03-29 10:19] LABS: Platelet Estimate Consistent w Auto; Toxic Vacuolation 1+
[2021-03-29] MEDS: MORPHINE 2 MG/1 ML INJ IV PRN (11:32)
--- NOTE | 2021-03-29 12:58 | Progress Note ---
Assessment and Plan ESRD on HD Anemia in CKD Hypertension Hyperkalemia Weakness Nausea and vomiting Plan: no indication for HD today Monitor BMP Renally dose medications Strict I&O's monitoring Assess dialysis needs daily Subjective Date of service: 03/29/21 Principal diagnosis: GI Bleed Interval history: tolerated HD yesterday Objective - Vital Signs Vital signs: Vital Signs - 12hr 03/29/21 03/29/21 03/29/21 01:00 01:30 02:00 Temperature Pulse Rate 77 76 74 Pulse Rate [ From Monitor] Respiratory 13 13 24 Rate Blood Pressure 142/71 149/72 157/75 03/29/21 03/29/21 03/29/21 02:30 02:33 03:00 Temperature Pulse Rate 68 83 74 Pulse Rate [ From Monitor] Respiratory 15 12 Rate Blood Pressure 175/92 175/92 170/94 03/29/21 03/29/21 03/29/21 03:30 03:49 04:00 Temperature 99.9 F H Pulse Rate 78 77 Pulse Rate [ 77 From Monitor] Respiratory 12 12 Rate Blood Pressure 173/102 190/97 03/29/21 03/29/21 03/29/21 04:30 05:00 05:30 Temperature Pulse Rate 78 81 81 Pulse Rate [ From Monitor] Respiratory 14 15 13 Rate Blood Pressure 178/102 161/92 169/99 03/29/21 03/29/21 03/29/21 06:00 06:30 07:01 Temperature Pulse Rate 70 Pulse Rate [ From Monitor] Respiratory 12 11 L Rate Blood Pressure 154/85 155/72 166/90 03/29/21 03/29/21 03/29/21 07:30 08:03 08:24 Temperature 98.9 F Pulse Rate 78 88 Pulse Rate [ From Monitor] Respiratory 12 Rate Blood Pressure 164/85 177/97 03/29/21 03/29/21 03/29/21 08:30 08:44 09:00 Temperature Pulse Rate 95 H 95 H 87 Pulse Rate [ From Monitor] Respiratory 17 18 Rate Blood Pressure 151/76 151/76 161/104 03/29/21 03/29/21 09:30 12:26 Temperature 98.7 F Pulse Rate 79 Pulse Rate [ From Monitor] Respiratory 12 Rate Blood Pressure 161/104 - Lab 03/29/21 08:50 03/29/21 08:50 Most recent lab results Calcium 7.9 mg/dL (8.4-10.2) L 03/29/21 08:50 Phosphorus 3.90 mg/dL (2.5-4.5) 03/29/21 08:50 Magnesium 2.00 mg/dL (1.7-2.3) 03/26/21 13:10 Medications & Allergies - Medications Allergies/Adverse Reactions: Allergies clonidine Allergy (Verified 02/21/21 14:59) Unknown lymph node swelling hydralazine Allergy (Verified 02/21/21 15:00) Unknown lymph node swelling Home Medications: Home Medications Medication Instructions Recorded Confirmed Last Taken Type Losartan [Cozaar] 100 mg PO QDAY 03/26/21 03/26/21 Unknown History NIFEdipine [Nifedipine ER] 90 mg PO DAILY 03/26/21 03/26/21 Unknown History carvediloL [Coreg] 25 mg PO BID 03/26/21 03/26/21 Unknown History Active Medications: Generic Name Dose Route Start Last Admin Trade Name Freq PRN Reason Stop Dose Admin Acetaminophen 650 mg 03/26/21 20:32 03/29/21 08:43 Acetaminophen 325 Mg Tab PO 650 mg Q4H PRN Administration Pain MILD(1-3)/Fever >100.5/REA Dextrose 50 ml 03/26/21 15:00 03/26/21 15:18 Dextrose 50% In Water (25gm) 50 Ml Syringe IV 50 ml Q30MIN PRN Administration Hypoglycemia Protocol Hydromorphone HCl 0.5 mg 03/26/21 20:32 03/28/21 17:28 Hydromorphone 1 Mg/1 Ml Inj IV 0.5 mg Q3H PRN Administration Pain , Severe (7-10) Dextrose/Sodium Chloride 1,000 mls @ 100 mls/hr 03/27/21 14:00 03/27/21 15:45 D5ns IV 100 mls/hr DIRECT PRATIMA Administration Labetalol HCl 10 mg 03/27/21 09:30 Labetalol 20 Mg/4 Ml Inj IV Q4H PRN Hypertension Labetalol HCl 20 mg 03/27/21 14:00 03/29/21 08:44 Labetalol 20 Mg/4 Ml Inj IV 20 mg Q6H PRATIMA Administration Metoclopramide HCl 10 mg 03/26/21 20:32 Metoclopramide 10 Mg/2 Ml Inj IV Q6H PRN Nausea And Vomiting Morphine Sulfate 2 mg 03/26/21 20:32 03/29/21 11:32 Morphine 2 Mg/1 Ml Inj IV 2 mg Q4H PRN Administration Pain, Moderate (4-6) Ondansetron HCl 4 mg 03/26/21 20:32 Ondansetron 4 Mg/2 Ml Inj IV Q3H PRN Nausea And Vomiting Pantoprazole Sodium 40 mg 03/26/21 22:00 03/29/21 09:07 Pantoprazole 40 Mg Inj IV 40 mg BID PRATIMA Administration Sodium Chloride 10 ml 03/26/21 22:00 03/28/21 22:52 Sodium Chloride 0.9% 10 Ml Flush Syringe IV 10 ml BID PRATIMA Administration Sodium Chloride 10 ml 03/26/21 20:32 Sodium Chloride 0.9% 10 Ml Flush Syringe IV PRN PRN LINE FLUSH
[2021-03-29] MEDS: EPOETIN ALFA-EPBX 20,000 UNIT/1 ML VIAL SUB-Q SCH (13:12)
--- NOTE | 2021-03-29 15:00 | Progress Note ---
Assessment and Plan Assessment and plan: Assessment and Plan Assessment and plan: 45-year-old male patient who is a Jehovah witness with significant past medical history of hypertension , ESRD on hemodialysis is admitted through emergency room with severe GI bleeding and acute blood loss anemia with hemoglobin of 4.6- 3.4 patient refused blood transfusion, GI and nephrology following Patient counseled,blood transfusion if he agrees Severe GI bleeding n.p.o. status, GI evaluated, possible endoscopy IV Protonix Severe acute blood loss anemia Hb 4.6-3.4 Patient is a Sabianist and refused blood transfusion Plasma expanders in the form of Hespan ordered Patient is aware of the seriousness of his severe anemia Leading to if not corrected promptly ESRD needing dialysis Nephrology consulted , HD per schedule Hypertension Moderate control , labetalol IV As needed medications Closely monitor Hyperkalemia Hyperkalemia treated monitor electrolytes Jehovah witness patient ; Patient has life-threatening GI bleeding and acute blood loss anemia GI Dr. Billy and I personally discussed with the patient at length The risks and consequences of refusing blood transfusion Patient verbalized understanding and confirmed that even if it is life- threatening. He would not receive blood transfusion due to his adventist beliefs DVT prophylaxis Continue SCDs DNR status Follow GI and renal recommendations We will closely monitor the patient and adjust management as needed. Patient poor prognosis if he does not comply with treatment Critical care time 45 minutes The high probability of a clinically significant, sudden or life threatening deterioration of the [multi] system(s) required my full and direct attention, intervention and personal management. The aggregate critical care time was [45] minutes. This time is in addition to time spent performing reported procedures but includes the following: [x] Data Review and interpretation [x] Patient assessment and monitoring of vital signs [x] Documentation [x] Medication orders and management 03/28/21 Patient has no episode of GI bleeding. Patient got 3 unit of packed red blood cells with hemodialysis yesterday Hemoglobin is 5.1 and hematocrit 15.0 today. We are giving 2 unit of packed red cells with hemodialysis today again Patient is seen and evaluated by GI and possible endoscopy/EGD in the morning Recheck CBC BMP in the morning Nephrology follow-up Continue current management 03/29/21 Patient has no episode of GI bleeding. No nausea vomiting Hemoglobin is 7.7 and hematocrit 23.8. we have started diet. EGD is canceled Continue Protonix 40 mg IV twice daily, Zofran. Renal function is improving BUN is 24 creatinine 7.5. Avoid nephrotoxic drug Recheck CBC BMP in the morning. GI and nephrology follow-up. History Interval history: Patient is seen and examined at the bedside Patient has no episode of GI bleeding. No nausea vomiting Hemoglobin is 7.7 and hematocrit 23.8. we have started diet. Vitals are stable Hospitalist Physical - Constitutional Vitals: Temp Pulse Resp BP Pulse Ox 98.7 F 85 16 167/92 98 03/29/21 12:26 03/29/21 13:00 03/29/21 13:00 03/29/21 13:00 03/28/21 08:35 General appearance: Present: no acute distress, well-nourished, obese - EENT Eyes: Present: PERRL, EOM intact ENT: hearing intact, clear oral mucosa - Neck Neck: Present: supple, normal ROM - Respiratory Respiratory effort: normal Respiratory: bilateral: diminished - Cardiovascular Rhythm: regular Heart Sounds: Present: S1 & S2 - Extremities Extremities: no ischemia Peripheral Pulses: within normal limits - Abdominal General gastrointestinal: soft, non-tender, non-distended - Integumentary Integumentary: Present: warm, dry - Psychiatric Psychiatric: appropriate mood/affect, intact judgment & insight - Neurologic Neurologic: CNII-XII intact, moves all extremities Results - Labs CBC & Chem 7: 03/29/21 08:50 03/29/21 08:50 Labs: Laboratory Last Values WBC 11.6 K/mm3 (4.5-11.0) H 03/29/21 08:50 RBC 2.62 M/mm3 (3.65-5.03) L 03/29/21 08:50 Hgb 7.7 gm/dl (11.8-15.2) L 03/29/21 08:50 Hct 23.8 % (35.5-45.6) L D 03/29/21 08:50 MCV 91 fl (84-94) 03/29/21 08:50 MCH 29 pg (28-32) 03/29/21 08:50 MCHC 32 % (32-34) 03/29/21 08:50 RDW 16.2 % (13.2-15.2) H 03/29/21 08:50 Plt Count 257 K/mm3 (140-440) 03/29/21 08:50 Lymph % (Auto) 27.4 % (13.4-35.0) 03/28/21 07:17 [place]ack[place]ord % (Auto) 10.0 % (0.0-7.3) H 03/28/21 07:17 Eos % (Auto) 0.7 % (0.0-4.3) 03/28/21 07:17 Baso % (Auto) 0.4 % (0.0-1.8) 03/28/21 07:17 Lymph # (Auto) 3.1 K/mm3 (1.2-5.4) 03/28/21 07:17 [place] # (Auto) 1.1 K/mm3 (0.0-0.8) H 03/28/21 07:17 Eos # (Auto) 0.1 K/mm3 (0.0-0.4) 03/28/21 07:17 Baso # (Auto) 0.0 K/mm3 (0.0-0.1) 03/28/21 07:17 Add Manual Diff Complete 03/29/21 08:50 Total Counted 100 03/29/21 08:50 Seg Neutrophils % 61.5 % (40.0-70.0) 03/28/21 07:17 Seg Neuts % (Manual) 72.0 % (40.0-70.0) H 03/29/21 08:50 Lymphocytes % (Manual) 13.0 % (13.4-35.0) L 03/29/21 08:50 Monocytes % (Manual) 13.0 % (0.0-7.3) H 03/29/21 08:50 Metamyelocytes % 2.0 % 03/29/21 08:50 Nucleated RBC % 4.0 % (0.0-0.9) H 03/29/21 08:50 Seg Neutrophils # 6.9 K/mm3 (1.8-7.7) 03/28/21 07:17 Seg Neutrophils # Man 8.4 K/mm3 (1.8-7.7) H 03/29/21 08:50 Band Neutrophils # 0.0 K/mm3 03/29/21 08:50 Lymphocytes # (Manual) 1.5 K/mm3 (1.2-5.4) 03/29/21 08:50 Abs React Lymphs (Man) 0.0 K/mm3 03/29/21 08:50 Monocytes # (Manual) 1.5 K/mm3 (0.0-0.8) H 03/29/21 08:50 Eosinophils # (Manual) 0.0 K/mm3 (0.0-0.4) 03/29/21 08:50 Basophils # (Manual) 0.0 K/mm3 (0.0-0.1) 03/29/21 08:50 Metamyelocytes # 0.2 K/mm3 03/29/21 08:50 Myelocytes # 0.0 K/mm3 03/29/21 08:50 Promyelocytes # 0.0 K/mm3 03/29/21 08:50 Blast Cells # 0.0 K/mm3 03/29/21 08:50 WBC Morphology Not Reportable 03/29/21 08:50 Hypersegmented Neuts Not Reportable 03/29/21 08:50 Hyposegmented Neuts Not Reportable 03/29/21 08:50 Hypogranular Neuts Not Reportable 03/29/21 08:50 Smudge Cells Not Reportable 03/29/21 08:50 Toxic Granulation Not Reportable 03/29/21 08:50 Toxic Vacuolation 1+ 03/29/21 08:50 Dohle Bodies Not Reportable 03/29/21 08:50 Pelger-Huet Anomaly Not Reportable 03/29/21 08:50 Anshul Rods Not Reportable 03/29/21 08:50 Platelet Estimate Consistent w auto 03/29/21 08:50 Clumped Platelets Not Reportable 03/29/21 08:50 Plt Clumps, EDTA Not Reportable 03/29/21 08:50 Large Platelets Not Reportable 03/29/21 08:50 Giant Platelets Not Reportable 03/29/21 08:50 Platelet Satelliting Not Reportable 03/29/21 08:50 Plt Morphology Comment Not Reportable 03/29/21 08:50 RBC Morphology Not Reportable 03/29/21 08:50 Dimorphic RBCs Not Reportable 03/29/21 08:50 Polychromasia Not Reportable 03/29/21 08:50 Hypochromasia Not Reportable 03/29/21 08:50 Poikilocytosis Not Reportable 03/29/21 08:50 Anisocytosis 1+ 03/29/21 08:50 Microcytosis Not Reportable 03/29/21 08:50 Macrocytosis Not Reportable 03/29/21 08:50 Spherocytes Not Reportable 03/29/21 08:50 Pappenheimer Bodies Not Reportable 03/29/21 08:50 Sickle Cells Not Reportable 03/29/21 08:50 Target Cells Not Reportable 03/29/21 08:50 Tear Drop Cells Not Reportable 03/29/21 08:50 Ovalocytes Not Reportable 03/29/21 08:50 Helmet Cells Not Reportable 03/29/21 08:50 [place] Bodies Not Reportable 03/29/21 08:50 [place] Rings Not Reportable 03/29/21 08:50 [place] Cells Not Reportable 03/29/21 08:50 Bite Cells Not Reportable 03/29/21 08:50 Crenated Cell Not Reportable 03/29/21 08:50 Elliptocytes Not Reportable 03/29/21 08:50 Acanthocytes (Spur) Not Reportable 03/29/21 08:50 Rouleaux Not Reportable 03/29/21 08:50 Hemoglobin C Crystals Not Reportable 03/29/21 08:50 Schistocytes Not Reportable 03/29/21 08:50 Malaria parasites Not Reportable 03/29/21 08:50 Mendez Bodies Not Reportable 03/29/21 08:50 Hem Pathologist Commnt No 03/29/21 08:50 PT 15.4 Sec. (12.2-14.9) H 03/26/21 13:10 INR 1.22 (0.87-1.13) H 03/26/21 13:10 APTT 48.4 Sec. (24.2-36.6) H 03/26/21 13:10 Sodium 141 mmol/L (137-145) 03/29/21 08:50 Potassium 4.2 mmol/L (3.6-5.0) 03/29/21 08:50 Chloride 101.7 mmol/L (98-107) 03/29/21 08:50 Carbon Dioxide 25 mmol/L (22-30) 03/29/21 08:50 Anion Gap 19 mmol/L 03/29/21 08:50 BUN 24 mg/dL (9-20) H 03/29/21 08:50 Creatinine 7.5 mg/dL (0.8-1.3) H 03/29/21 08:50 Estimated GFR 10 ml/min 03/29/21 08:50 BUN/Creatinine Ratio 3 % 03/29/21 08:50 Glucose 100 mg/dL (75-100) 03/29/21 08:50 POC Glucose 106 mg/dL (70-105) H 03/29/21 08:17 Calcium 7.9 mg/dL (8.4-10.2) L 03/29/21 08:50 Phosphorus 3.90 mg/dL (2.5-4.5) 03/29/21 08:50 Magnesium 2.00 mg/dL (1.7-2.3) 03/26/21 13:10 Iron 37 ug/dL (49-181) L 03/27/21 09:45 TIBC 215 mcg/dL (250-450) L 03/27/21 09:45 Ferritin 119.0 ng/mL (30.0-300.0) 03/27/21 09:45 Total Bilirubin 0.20 mg/dL (0.1-1.2) 03/26/21 13:10 AST 10 units/L (5-40) 03/26/21 13:10 ALT 5 units/L (7-56) L 03/26/21 13:10 Alkaline Phosphatase 57 units/L (35-129) 03/26/21 13:10 Total Creatine Kinase 218 units/L (55-170) H 03/26/21 13:10 Total Protein 5.9 g/dL (6.3-8.2) L 03/26/21 13:10 Albumin 3.7 g/dL (3.9-5) L 03/26/21 13:10 Albumin/Globulin Ratio 1.7 % 03/26/21 13:10 Hepatitis A IgM Ab Non-reactive (NonReactive) 03/26/21 16:00 Hep Bs Antigen Non-reactive (Negative) 03/26/21 16:00 Hep B Core IgM Ab Non-reactive (NonReactive) 03/26/21 16:00 Hepatitis C Antibody Non-reactive (NonReactive) 03/26/21 16:00 Blood Type O POSITIVE 03/26/21 13:42 Antibody Screen Negative 03/26/21 13:42 Crossmatch See Detail 03/26/21 13:42 Davis/IV: Voiding Method Urinal Active Medications - Current Medications Current Medications: Generic Name Dose Route Start Last Admin Trade Name Freq PRN Reason Stop Dose Admin Acetaminophen 650 mg 03/26/21 20:32 03/29/21 08:43 Acetaminophen 325 Mg Tab PO 650 mg Q4H PRN Administration Pain MILD(1-3)/Fever >100.5/REA Dextrose 50 ml 03/26/21 15:00 03/26/21 15:18 Dextrose 50% In Water (25gm) 50 Ml Syringe IV 50 ml Q30MIN PRN Administration Hypoglycemia Protocol Hydromorphone HCl 0.5 mg 03/26/21 20:32 03/28/21 17:28 Hydromorphone 1 Mg/1 Ml Inj IV 0.5 mg Q3H PRN Administration Pain , Severe (7-10) Dextrose/Sodium Chloride 1,000 mls @ 100 mls/hr 03/27/21 14:00 03/27/21 15:45 D5ns IV 100 mls/hr DIRECT PRATIMA Administration Labetalol HCl 10 mg 03/27/21 09:30 Labetalol 20 Mg/4 Ml Inj IV Q4H PRN Hypertension Labetalol HCl 20 mg 03/27/21 14:00 03/29/21 08:44 Labetalol 20 Mg/4 Ml Inj IV 20 mg Q6H PRATIMA Administration Metoclopramide HCl 10 mg 03/26/21 20:32 Metoclopramide 10 Mg/2 Ml Inj IV Q6H PRN Nausea And Vomiting Morphine Sulfate 2 mg 03/26/21 20:32 03/29/21 11:32 Morphine 2 Mg/1 Ml Inj IV 2 mg Q4H PRN Administration Pain, Moderate (4-6) Ondansetron HCl 4 mg 03/26/21 20:32 Ondansetron 4 Mg/2 Ml Inj IV Q3H PRN Nausea And Vomiting Pantoprazole Sodium 40 mg 03/26/21 22:00 03/29/21 09:07 Pantoprazole 40 Mg Inj IV 40 mg BID PRATIMA Administration Sodium Chloride 10 ml 03/26/21 22:00 03/28/21 22:52 Sodium Chloride 0.9% 10 Ml Flush Syringe IV 10 ml BID PRATIMA Administration Sodium Chloride 10 ml 03/26/21 20:32 Sodium Chloride 0.9% 10 Ml Flush Syringe IV PRN PRN LINE FLUSH Nutrition/Malnutrition Assess - Malnutrition Assessment Minimum of two criteria: No - Attestation Statement I have reviewed and agreed w/ Malnutrition eval & tx plan: Yes
[2021-03-29] MEDS: HYDROmorphone 1 MG/1 ML INJ IV PRN (23:05)
[2021-03-30] MEDS: HYDROmorphone 1 MG/1 ML INJ IV PRN ×4 (03:06→13:12)
[2021-03-30] MEDS: MORPHINE 2 MG/1 ML INJ IV PRN (06:05)
[2021-03-30 07:24] LABS: Basophils % (Auto) 0.3 % (0.0-1.8); Eosinophils # (Auto) 0.4 K/mm3 (0.0-0.4); Eosinophils % (Auto) 3.4 % (0.0-4.3); Hematocrit 21.1 % (35.5-45.6); Hemoglobin 6.9 gm/dl (11.8-15.2); Lymphocytes # (Auto) 3.1 K/mm3 (1.2-5.4); Lymphocytes % (Auto) 27.9 % (13.4-35.0); Mean Corpuscular HGB Conc 33 % (32-34); Mean Corpuscular Volume 91 fl (84-94); Monocytes # (Auto) 1.4 K/mm3 (0.0-0.8); Platelet Count 238 K/mm3 (140-440); Red Blood Count 2.31 M/mm3 (3.65-5.03); Red Cell Distribution Width 16.4 % (13.2-15.2)
[2021-03-30] MEDS ORDERED: PANTOPRAZOLE 40 MG TAB PO SCH (07:30)
[2021-03-30] MEDS ORDERED: EPOETIN ALFA-EPBX 20,000 UNIT/1 ML VIAL SUB-Q PRN (08:00)
[2021-03-30] MEDS ORDERED: hydrALAZINE 25 MG TAB PO SCH (09:00)
--- NOTE | 2021-03-30 09:44 | Event Note ---
Date: 03/30/21 Was called by the nurse. Patient's Hgb down to 6.9 from 7.7 yesterday. Patient without any BM since admission and no nausea/vomiting. VS stable. Patient previously refused blood transfusion and EGD. Now willing to receive blood transfusion and do EGD. Patient's ordered for 1 unit of PRBC with HD today. Patient had breakfast this morning. No signs of active bleeding and HD stable. Cont with PPI IV. Will plan for EGD on Thursday.
[2021-03-30] MEDS ORDERED: SODIUM CHLORIDE 0.9% 500 ML 500 ML IV SCH (10:00)
--- NOTE | 2021-03-30 10:51 | Progress Note ---
Assessment and Plan Assessment and Plan ESRD on HD Anemia in CKD Hypertension Hyperkalemia Weakness Nausea and vomiting Plan: HD today Monitor BMP Renally dose medications Strict I&O's monitoring Assess dialysis needs daily Subjective Date of service: 03/30/21 Principal diagnosis: GI Bleed Interval history: HD today. Objective - Exam Narrative Exam: - General Appearance General appearance: well-developed, well-nourished, appears stated age EENT: ATNC, PERRL, mucous membranes moist Neck: no JVD, no carotid bruit Respiratory: Present: Clear to Ascultation. Absent: Rales, Ronchi Cardiology: regular, S1S2 Gastrointestinal: normoactive bowel sounds, no tenderness, no distended Integumentary: no rash, warm and dry Neurologic: no focal deficit, no asterixis, alert and oriented x3 Musculoskeletal: other (no edema in BLE) - Vital Signs Vital signs: Vital Signs - 12hr 03/29/21 03/29/21 03/29/21 23:00 23:05 23:30 Temperature Pulse Rate 78 77 Pulse Rate [ From Monitor] Respiratory 15 9 L 12 Rate Blood Pressure 159/82 159/82 03/30/21 03/30/21 03/30/21 00:00 00:30 01:00 Temperature Pulse Rate 75 72 77 Pulse Rate [ From Monitor] Respiratory 9 L 16 12 Rate Blood Pressure 165/96 165/96 165/96 03/30/21 03/30/21 03/30/21 01:31 02:01 02:31 Temperature Pulse Rate 68 69 76 Pulse Rate [ From Monitor] Respiratory 11 L 9 L 13 Rate Blood Pressure 175/85 175/85 03/30/21 03/30/21 03/30/21 03:01 03:31 04:01 Temperature Pulse Rate 82 66 80 Pulse Rate [ From Monitor] Respiratory 11 L 11 L 14 Rate Blood Pressure 173/101 174/97 169/130 03/30/21 03/30/21 03/30/21 04:02 04:05 04:31 Temperature Pulse Rate 81 73 Pulse Rate [ From Monitor] Respiratory 18 9 L Rate Blood Pressure 169/130 169/130 03/30/21 03/30/21 03/30/21 05:01 05:31 06:01 Temperature Pulse Rate 80 73 75 Pulse Rate [ From Monitor] Respiratory 14 10 L 19 Rate Blood Pressure 169/130 173/94 173/94 03/30/21 03/30/21 03/30/21 06:05 06:31 07:01 Temperature Pulse Rate 77 79 77 Pulse Rate [ From Monitor] Respiratory 11 L 13 10 L Rate Blood Pressure 199/115 199/115 191/89 03/30/21 03/30/21 03/30/21 07:31 08:00 08:01 Temperature 97.7 F Pulse Rate 77 77 79 Pulse Rate [ 77 From Monitor] Respiratory 15 12 10 L Rate Blood Pressure 191/89 191/89 03/30/21 03/30/21 03/30/21 08:31 09:01 10:10 Temperature 98.0 F Pulse Rate 86 87 87 Pulse Rate [ From Monitor] Respiratory 12 13 18 Rate Blood Pressure 156/73 131/69 150/76 03/30/21 03/30/21 03/30/21 10:15 10:30 10:45 Temperature Pulse Rate 88 84 83 Pulse Rate [ From Monitor] Respiratory Rate Blood Pressure 144/76 145/77 136/74 - Lab 03/30/21 06:55 03/30/21 06:55 Most recent lab results Calcium 8.0 mg/dL (8.4-10.2) L 03/30/21 06:55 Phosphorus 3.90 mg/dL (2.5-4.5) 03/29/21 08:50 Magnesium 2.00 mg/dL (1.7-2.3) 03/26/21 13:10 Medications & Allergies - Medications Allergies/Adverse Reactions: Allergies clonidine Allergy (Verified 02/21/21 14:59) Unknown lymph node swelling hydralazine Allergy (Verified 02/21/21 15:00) Unknown lymph node swelling Home Medications: Home Medications Medication Instructions Recorded Confirmed Last Taken Type Losartan [Cozaar] 100 mg PO QDAY 03/26/21 03/26/21 Unknown History NIFEdipine [Nifedipine ER] 90 mg PO DAILY 03/26/21 03/26/21 Unknown History carvediloL [Coreg] 25 mg PO BID 03/26/21 03/26/21 Unknown History Epoetin Vaibhav-Epbx 20,000 [Retacrit] 20,000 unit SUB-Q PRN PRN vial 03/30/21 Unknown Rx Pantoprazole [Protonix TAB] 40 mg PO BIDAC 30 Days #60 tablet 03/30/21 Unknown Rx hydrALAZINE [Apresoline TAB] 25 mg PO Q8HR 30 Days tablet 03/30/21 Unknown Rx Active Medications: Generic Name Dose Route Start Last Admin Trade Name Freq PRN Reason Stop Dose Admin Acetaminophen 650 mg 03/26/21 20:32 03/29/21 08:43 Acetaminophen 325 Mg Tab PO 650 mg Q4H PRN Administration Pain MILD(1-3)/Fever >100.5/REA Dextrose 50 ml 03/26/21 15:00 03/26/21 15:18 Dextrose 50% In Water (25gm) 50 Ml Syringe IV 50 ml Q30MIN PRN Administration Hypoglycemia Protocol Hydralazine HCl 25 mg 03/30/21 09:00 Hydralazine 25 Mg Tab PO Q8HR PRATIMA Hydromorphone HCl 0.5 mg 03/26/21 20:32 03/30/21 10:00 Hydromorphone 1 Mg/1 Ml Inj IV 0.5 mg Q3H PRN Administration Pain , Severe (7-10) Dextrose/Sodium Chloride 1,000 mls @ 100 mls/hr 03/27/21 14:00 03/27/21 15:45 D5ns IV 100 mls/hr DIRECT PRATIMA Administration Sodium Chloride 500 mls @ 0 mls/hr 03/30/21 10:00 Nacl 0.9% 500 Ml IV 03/30/21 19:00 ONCE PRATIMA As Directed Labetalol HCl 10 mg 03/27/21 09:30 03/30/21 06:05 Labetalol 20 Mg/4 Ml Inj IV 10 mg Q4H PRN Administration Hypertension Metoclopramide HCl 10 mg 03/26/21 20:32 Metoclopramide 10 Mg/2 Ml Inj IV Q6H PRN Nausea And Vomiting Morphine Sulfate 2 mg 03/26/21 20:32 03/30/21 06:05 Morphine 2 Mg/1 Ml Inj IV 2 mg Q4H PRN Administration Pain, Moderate (4-6) Ondansetron HCl 4 mg 03/26/21 20:32 Ondansetron 4 Mg/2 Ml Inj IV Q3H PRN Nausea And Vomiting Pantoprazole Sodium 40 mg 03/30/21 07:30 03/30/21 08:11 Pantoprazole 40 Mg Tab PO 40 mg BIDAC PRATIMA Administration Sodium Chloride 10 ml 03/26/21 22:00 03/30/21 08:12 Sodium Chloride 0.9% 10 Ml Flush Syringe IV Not Given BID PRATIMA Sodium Chloride 10 ml 03/26/21 20:32 Sodium Chloride 0.9% 10 Ml Flush Syringe IV PRN PRN LINE FLUSH
--- NOTE | 2021-03-30 11:10 | Discharge Summary ---
Providers - Providers Date of Admission: 03/26/21 15:19 Date of discharge: 03/30/21 Attending physician: KARLIE LANGLEY MD 03/26/21 Consult to Case Management [CONS] Routine Services Needed at Discharge: Home Health Services Physical Therapy 03/26/21 14:34 Consult to Physician [CONS] Urgent Comment: Consulting Provider: ROEL WELLS Physician Instructions: Reason For Exam: esrd 03/28/21 10:04 Consult to Physician [CONS] Routine Comment: Consulting Provider: ACE ZULETA Physician Instructions: Reason For Exam: GIB Primary care physician: FREELANCE INTERPRETER/TRANSLATOR Hospitalization Reason for admission: GI bleeding. Acute blood loss anemia. End-stage renal disease on dialysis Condition: Good Hospital course: 45 yo male admitted after missing HD. He has new ESRD on HD in the last 6 months (per records at [facility]). He has associated melena in the ER, and was noted to have a hct of 14. Although last month his hct was over 30, in October at [facility] it was 24-26. He has been taking daily ASA, and PRN advil/aleve for aches and pain. He denies hematemesis, or a hx of PUD. He has back pain but no severe abdominal pain or vomiting. He is not on antiacid therapy at home. He is a Adventist, and states multiple times he does not want a blood transfusion, even it leads to his demise. It is not clear if he was getting epogen at his HD (recently changed centers). Past History Past Medical History: anemia, ESRD, hypertension Assessment and Plan Assessment and plan: Assessment and Plan Assessment and plan: 45-year-old male patient who is a Jehovah witness with significant past medical history of hypertension , ESRD on hemodialysis is admitted through emergency room with severe GI bleeding and acute blood loss anemia with hemoglobin of 4.6- 3.4 patient refused blood transfusion, GI and nephrology following Patient counseled,blood transfusion if he agrees Severe GI bleeding n.p.o. status, GI evaluated, possible endoscopy IV Protonix Severe acute blood loss anemia Hb 4.6-3.4 Patient is a Adventist and refused blood transfusion Plasma expanders in the form of Hespan ordered Patient is aware of the seriousness of his severe anemia Leading to if not corrected promptly ESRD needing dialysis Nephrology consulted , HD per schedule Hypertension Moderate control , labetalol IV As needed medications Closely monitor Hyperkalemia Hyperkalemia treated monitor electrolytes Jehovah witness patient ; Patient has life-threatening GI bleeding and acute blood loss anemia GI Dr. Billy and I personally discussed with the patient at length The risks and consequences of refusing blood transfusion Patient verbalized understanding and confirmed that even if it is life- threatening. He would not receive blood transfusion due to his orthodox beliefs DVT prophylaxis Continue SCDs DNR status Follow GI and renal recommendations We will closely monitor the patient and adjust management as needed. Patient poor prognosis if he does not comply with treatment Critical care time 45 minutes The high probability of a clinically significant, sudden or life threatening deterioration of the [multi] system(s) required my full and direct attention, intervention and personal management. The aggregate critical care time was [45] minutes. This time is in addition to time spent performing reported procedures but includes the following: [x] Data Review and interpretation [x] Patient assessment and monitoring of vital signs [x] Documentation [x] Medication orders and management 03/28/21 Patient has no episode of GI bleeding. Patient got 3 unit of packed red blood cells with hemodialysis yesterday Hemoglobin is 5.1 and hematocrit 15.0 today. We are giving 2 unit of packed red cells with hemodialysis today again Patient is seen and evaluated by GI and possible endoscopy/EGD in the morning Recheck CBC BMP in the morning Nephrology follow-up Continue current management 03/29/21 Patient has no episode of GI bleeding. No nausea vomiting Hemoglobin is 7.7 and hematocrit 23.8. we have started diet. EGD is canceled Continue Protonix 40 mg IV twice daily, Zofran. Renal function is improving BUN is 24 creatinine 7.5. Avoid nephrotoxic drug Recheck CBC BMP in the morning. GI and nephrology follow-up. 03/30/21 Patient is doing better. No nausea vomiting. No more GI bleeding. Hemoglobin is 6.9 and hematocrit 21.1. Patient getting 1 unit of packed red blood cells with dialysis. GI want to do the EGD on next Thursday but patient wants to go home and follow-up with his regular GI doctor as outpatient within a week. Patient is having dialysis today. Nephrology follow-up We will discharge the patient home with Protonix patient instructed to avoid aspirin and Goody powders. Patient will follow up with his GI doctor as outpatient within a week also follow-up with primary care within a week. Condition at the time of discharge is stable. We will continue the home m edication Disposition: DC-01 TO HOME OR SELFCARE Final Discharge Diagnosis (Prints w/discharge instructions): GI bleeding resolved. Severe acute blood loss anemia. End-stage renal disease on dialysis hypertension Core Measure Documentation - Palliative Care Palliative Care/ Comfort Measures: Not Applicable - Core Measures Any of the following diagnoses?: none Exam - Constitutional Vitals: Temp Pulse Resp BP Pulse Ox 98.0 F 83 18 136/74 98 03/30/21 10:10 03/30/21 10:45 03/30/21 10:10 03/30/21 10:45 03/28/21 08:35 General appearance: Present: no acute distress, well-nourished - EENT Eyes: Present: PERRL ENT: hearing intact, clear oral mucosa - Neck Neck: Present: supple, normal ROM - Respiratory Respiratory effort: normal Respiratory: bilateral: CTA - Cardiovascular Heart Sounds: Present: S1 & S2. Absent: rub, click - Extremities Extremities: pulses symmetrical, No edema Peripheral Pulses: within normal limits - Abdominal General gastrointestinal: Present: soft, non-tender, non-distended, normal bowel sounds Male genitourinary: Present: normal - Integumentary Integumentary: Present: clear, warm, dry - Musculoskeletal Musculoskeletal: gait normal, strength equal bilaterally - Psychiatric Psychiatric: appropriate mood/affect, intact judgment & insight - Neurologic Neurologic: CNII-XII intact, moves all extremities Plan Activity: no restrictions Diet: low fat, low salt Follow up with: PRIMARY CARE, [Primary Care Provider] - 7 Days Prescriptions: hydrALAZINE [Apresoline TAB] 25 mg PO Q8HR 30 Days tablet Pantoprazole [Protonix TAB] 40 mg PO BIDAC 30 Days #60 tablet
[2021-03-30 13:28] VITALS: BP 122/75
== END 2021-03-30 16:00 | disposition home or self-care (01) | DRG 377 ==
LOC: ED 12:45 → IMCU 15:19
PROVIDERS: ADMIT Internal Medicine; ATTEND Hospitalist
PROC: 30233N1 Transfusion of Nonautologous Red Blood Cells into Peripheral Vein, Percutaneous Approach (ICD-10-PCS; principal; 2021-03-27)
PROC: 5A1D70Z Performance of Urinary Filtration, Intermittent, Less than 6 Hours Per Day (ICD-10-PCS; 2021-03-27)
PROC: 5A1D70Z Performance of Urinary Filtration, Intermittent, Less than 6 Hours Per Day (ICD-10-PCS; 2021-03-28)
PROC: 5A1D70Z Performance of Urinary Filtration, Intermittent, Less than 6 Hours Per Day (ICD-10-PCS; 2021-03-30)
DX: K92.2 Gastrointestinal hemorrhage, unspecified (principal); N18.6 End stage renal disease; E87.2 Acidosis; D62 Acute posthemorrhagic anemia; I13.2 Hypertensive heart and chronic kidney disease with heart failure and with stage 5 chronic kidney disease, or end stage renal disease; E87.5 Hyperkalemia; F41.9 Anxiety disorder, unspecified; H54.8 Legal blindness, as defined in USA; R79.89 Other specified abnormal findings of blood chemistry; I50.9 Heart failure, unspecified; D63.1 Anemia in chronic kidney disease; Z53.29 Procedure and treatment not carried out because of patient's decision for other reasons; Z66 Do not resuscitate; Z88.8 Allergy status to other drugs, medicaments and biological substances; Z87.891 Personal history of nicotine dependence
CPT/HCPCS: 36415; 36430; 74176; 80048; 80053; 80074; 82550; 82728; 82962; 83550; 83735; 84100; 85007; 85025; 85027; 85610; 85730; 86850; 86900; 86901; 86920; 93005; 96365; G0378; C9113; J0610; J0885; J1170; J1200; J1815; J2270; J2405; J2597; J2704; J2916; J7042; P9016

== ENCOUNTER 2022-03-02 15:45 | Emergency (ER) | payer MEDICARE, MEDICAID ==
[2022-03-02] MEDS ORDERED: ONDANSETRON 4 MG/2 ML INJ IV ONE (17:05)
[2022-03-02] MEDS ORDERED: MORPHINE 4 MG/1 ML INJ IV ONE (17:05)
--- NOTE | 2022-03-02 17:11 | Emergency Department Report ---
- General Chief complaint: Weakness Stated complaint: LOW HEMOGLOBIN Time Seen by Provider: 03/02/22 16:23 Source: patient Mode of arrival: Wheelchair Limitations: No Limitations - History of Present Illness Initial comments: 46-year-old male with a history of end-stage renal disease taking peritoneal dialysis on Thursday, Thursday, , and Thursday who now presented with genera lized body weakness and aches that started about 4- 5 days ago progressively getting worse. Patient denies any fever or chill. Patient reported that he noticed that he lost some blood during dialysis on 2 location this past week. He said he has had this episode in the past where he has a GI bleed with hemoglobin of 3 and was admitted to the hospital for transfusion. Patient also mentioned that he take Epogen which was changed by his primary doctor for some reason not known to him. No other modifying or positive factors reported. Severity scale (0 -10): 10 - Related Data Home Medications Medication Instructions Recorded Confirmed Last Taken Losartan [Cozaar] 100 mg PO QDAY 03/26/21 03/26/21 Unknown NIFEdipine [Nifedipine ER] 90 mg PO DAILY 03/26/21 03/26/21 Unknown carvediloL [Coreg] 25 mg PO BID 03/26/21 03/26/21 Unknown Previous Rx's Medication Instructions Recorded Last Taken Type Epoetin Vaibhav-Epbx 20,000 [Retacrit] 20,000 unit SUB-Q PRN PRN vial 03/30/21 Unknown Rx Pantoprazole [Protonix TAB] 40 mg PO BIDAC 30 Days #60 tablet 03/30/21 Unknown Rx hydrALAZINE [Apresoline TAB] 25 mg PO Q8HR 30 Days tablet 03/30/21 Unknown Rx oxyCODONE /ACETAMINOPHEN [Percocet 1 tab PO Q6HR PRN 5 Days #14 tablet 03/02/22 Unknown Rx 5/325] Allergies Allergy/AdvReac Type Severity Reaction Status Date / Time clonidine Allergy Unknown Verified 02/21/21 14:59 hydralazine Allergy Unknown Verified 02/21/21 15:00 ED Review of Systems ROS: Stated complaint: LOW HEMOGLOBIN Other details as noted in HPI Comment: All other systems reviewed and negative Respiratory: denies: shortness of breath Cardiovascular: denies: chest pain, palpitations Musculoskeletal: arthralgia, myalgia Neurological: weakness ED Past Medical Hx - Past Medical History Hx Hypertension: Yes Hx Congestive Heart Failure: Yes Hx Diabetes: No Hx Renal Disease: Yes (dialysis t, th sat R chest access) Hx Asthma: No Hx COPD: No Hx HIV: No Additional medical history: Legally blind - Surgical History Additional Surgical History: On Thursday, left arm fistula placed, waiting 90 days to use - Social History Smoking Status: Current Some Day Smoker - Medications Home Medications: Home Medications Medication Instructions Recorded Confirmed Last Taken Type Losartan [Cozaar] 100 mg PO QDAY 03/26/21 03/26/21 Unknown History NIFEdipine [Nifedipine ER] 90 mg PO DAILY 03/26/21 03/26/21 Unknown History carvediloL [Coreg] 25 mg PO BID 03/26/21 03/26/21 Unknown History Epoetin Vaibhav-Epbx 20,000 [Retacrit] 20,000 unit SUB-Q PRN PRN vial 03/30/21 Unknown Rx Pantoprazole [Protonix TAB] 40 mg PO BIDAC 30 Days #60 tablet 03/30/21 Unknown Rx hydrALAZINE [Apresoline TAB] 25 mg PO Q8HR 30 Days tablet 03/30/21 Unknown Rx oxyCODONE /ACETAMINOPHEN [Percocet 1 tab PO Q6HR PRN 5 Days #14 tablet 03/02/22 Unknown Rx 5/325] ED Physical Exam - General Limitations: No Limitations General appearance: alert, in no apparent distress - Head Head exam: Present: normal inspection - Eye Eye exam: Present: normal appearance Pupils: Present: normal accommodation - ENT ENT exam: Present: normal exam, normal orophraynx, mucous membranes moist - Neck Neck exam: Present: normal inspection, full ROM. Absent: tenderness - Respiratory Respiratory exam: Present: normal lung sounds bilaterally. Absent: respiratory distress - Cardiovascular Cardiovascular Exam: Present: regular rate, normal rhythm, normal heart sounds - GI/Abdominal GI/Abdominal exam: Present: soft, normal bowel sounds. Absent: distended, tenderness, guarding, rebound - Back Exam Back exam: Present: normal inspection - Neurological Exam Neurological exam: Present: alert, oriented X3 - Psychiatric Psychiatric exam: Present: normal affect, normal mood ED Course Vital Signs 03/02/22 03/02/22 03/02/22 16:05 16:34 16:37 Temperature 99.1 F 97.6 F Pulse Rate 88 89 89 Respiratory 18 16 16 Rate Blood Pressure 136/73 Blood Pressure 153/79 [Right] O2 Sat by Pulse 97 99 99 Oximetry 03/02/22 03/02/22 17:00 18:00 Temperature Pulse Rate 88 86 Respiratory 22 17 Rate Blood Pressure 153/79 147/84 Blood Pressure [Right] O2 Sat by Pulse 96 93 Oximetry - Reevaluation(s) Reevaluation #1: 03/02/22 17:10 Here with generalized body aches and muscle weakness for the last 4 to 5 days--in a patient with history of end-stage renal disease currently on peritoneal dialysis at home on Thursday, Thursday, and Thursday--with possible blood loss during procedure--concerning for acute blood loss on chronic anemia--so we will go ahead and order routine labs including CBC, CMP, and urinalysis for any electrolyte abnormality or infectious process. In the meantime we will give morphine 4 mg for pain and Zofran for nausea while waiting for the above work-up lab. Reevaluation #2: 03/02/22 19:05 Patient reports feeling a little better after getting the initial morphine and also 50 mcg of fentanyl for the generalized muscle aches that he was complaining about. Patient noted with low H&H at 7.8/23.3 which is slightly better than it was few months ago and seems to be at baseline for this patient. He was also noticed to have slightly elevated white count which seems to be chronic looking back on his previous visit. His BUN and creatinine was slightly above baseline at 51/13. We will discharge patient home on pain medication and to continue is peritoneal dialysis at home with close follow-up with nephrology and primary doctor. ED Medical Decision Making - Lab Data Result diagrams: 03/02/22 17:51 03/02/22 17:51 - Differential Diagnosis Acute on chronic anemia, electrolyte abnormality, viral syndrome Critical care attestation.: If time is entered above; I have spent that time in minutes in the direct care of this critically ill patient, excluding procedure time. ED Disposition Clinical Impression: Generalized muscle weakness, Generalized muscle ache, Chronic anemia, ESRD needing dialysis Acute on chronic kidney failure Qualifiers: Acute renal failure type: unspecified Chronic kidney disease stage: unspecified stage Qualified Code(s): N17.9 - Acute kidney failure, unspecified Anemia Qualifiers: Anemia type: unspecified type Qualified Code(s): D64.9 - Anemia, unspecified Disposition: 01 HOME / SELF CARE / HOMELESS Is pt being admited?: No Does the pt Need Aspirin: No Condition: Stable Instructions: Weakness, [id number], Chronic Kidney Disease, Adult, [id number], Chronic Kidney Disease, Adult, End-Stage Kidney Disease Additional Instructions: Take your pain medication to help with her symptoms : Follow-up with your nephrology/primary doctor in the next 3 to 5 days for progress Please do not hesitate to call or return to emergency room if your symptoms worsen Prescriptions: oxyCODONE /ACETAMINOPHEN [Percocet 5/325] 1 tab PO Q6HR PRN 5 Days #14 tablet PRN Reason: Pain Time of Disposition: 19:28
[2022-03-02] MEDS ORDERED: fentaNYL 100 MCG/2 ML INJ IV ONE (17:48)
[2022-03-02 18:10] VITALS: BP 147/84
[2022-03-02 18:22] LABS: Basophils % (Auto) 0.3 % (0.0-1.8); Eosinophils # (Auto) 0.1 K/mm3 (0.0-0.4); Eosinophils % (Auto) 0.8 % (0.0-4.3); Hematocrit 23.3 % (35.5-45.6); Hemoglobin 7.8 gm/dl (11.8-15.2); Lymphocytes # (Auto) 0.8 K/mm3 (1.2-5.4); Lymphocytes % (Auto) 6.7 % (13.4-35.0); Mean Corpuscular HGB Conc 33 % (32-34); Mean Corpuscular Volume 95 fl (84-94); Monocytes % (Auto) 8.5 % (0.0-7.3); Platelet Count 226 K/mm3 (140-440); Red Blood Count 2.47 M/mm3 (3.65-5.03)
[2022-03-02 18:35] LABS: INR 0.99 (0.87-1.13)
[2022-03-02 18:36] LABS: Partial Thromboplastin Time 42.8 Sec. (24.2-36.6)
[2022-03-02 18:41] LABS: Albumin 4.1 g/dL (3.9-5); Calcium 8.3 mg/dL (8.4-10.2)
--- NOTE | 2022-03-03 10:25 | Electrocardiograph Report ---
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
== END 2022-03-02 19:47 | disposition home or self-care (01) ==
LOC: ED 15:45
DX: I12.9 Hypertensive chronic kidney disease with stage 1 through stage 4 chronic kidney disease, or unspecified chronic kidney disease (principal); N17.9 Acute kidney failure, unspecified; M62.81 Muscle weakness (generalized); D64.9 Anemia, unspecified; F17.200 Nicotine dependence, unspecified, uncomplicated
CPT/HCPCS: 36415; 80053; 84443; 85025; 85610; 85730; 93005; 96374; 96375; 99283; J2270; J2405; J3010

== ENCOUNTER 2022-04-16 06:52 | Day surgery (SDC) | payer MEDICARE ==
[~2022-04-16 06:52] MED LIST: ACETAMINOPHEN 325 MG TAB PO SCH; SODIUM CHLORIDE 0.9% 1000 ML 1,000 ML IV SCH
[2022-04-16] MEDS ORDERED: ONDANSETRON 4 MG/2 ML INJ ONE (07:39)
[2022-04-16] MEDS ORDERED: fentaNYL 100 MCG/2 ML INJ ONE (07:40)
[2022-04-16] MEDS ORDERED: LIDOCAINE MPF (2%) 20 MG/1 ML VIAL 5 ML ONE (07:40)
[2022-04-16] MEDS ORDERED: propofoL 200 MG/20 ML VIAL IV ONE (07:40)
[2022-04-16] MEDS ORDERED: ceFAZolin/Water 2 GM/20 ML 2 GM/20 ML SYRINGE IV ONE (07:43)
[2022-04-16] MEDS ORDERED: ONDANSETRON 4 MG/2 ML INJ IV PRN (08:01)
[2022-04-16] MEDS ORDERED: fentaNYL 100 MCG/2 ML INJ IV PRN ×2 (08:01→12:00)
--- NOTE | 2022-04-16 08:01 | Anesthesia Consultation ---
Anesthesia Consult and Med Hx Date of service: 04/16/22 - Airway Anesthetic Teeth Evaluation: Good ROM Head & Neck: Adequate Mental/Hyoid Distance: Adequate Mallampati Class: Class III Intubation Access Assessment: Possibly Difficult - Pre-Operative Health Status ASA Pre-Surgery Classification: ASA4 Proposed Anesthetic Plan: General - Pulmonary Hx Smoking: Yes (occasional cigars and THC) Hx Respiratory Symptoms: No Hx Sleep Apnea: No (NATALIA PRE SCREEN HIGH RISK) - Cardiovascular System Hx Hypertension: Yes (took antihypertensives this morning) Hx Heart Attack/AMI: No Hx Percutaneous Transluminal Coronary Angioplasty (PTCA): No - Central Nervous System CVA: No - Gastrointestinal Hx Gastroesophageal Reflux Disease: Yes (will give home dose patoprazole in preop) - Endocrine Hx End Stage Renal Disease: Yes (last HD 04/15/22) Hx Liver Disease: No Hx Insulin Dependent Diabetes: No Hx Non-Insulin Dependent Diabetes: No Hx Thyroid Disease: No - Hematic Hx Anemia: Yes - Other Systems Hx Substance Use: Yes (occasional THC) Hx Obesity: Yes (BMI 38) - Additional Comments Anesthesia Medical History Comments: No hx anesthetic complications. Recently hospitalized for sepsis/bacteremia in 03/14/22. Returned to baseline health. Patient admits to eating fried chicken today at 0200. Surgeon informed that of NPO violation. Case start delayed.
[2022-04-16] MEDS ORDERED: PANTOPRAZOLE 40 MG INJ IV NR (08:04)
[2022-04-16 08:10] LABS: Hematocrit 25.2 % (35.5-45.6); Hemoglobin 8.6 gm/dl (11.8-15.2); Mean Corpuscular HGB Conc 34 % (32-34); Mean Corpuscular Volume 91 fl (84-94); Platelet Count 339 K/mm3 (140-440); Red Blood Count 2.78 M/mm3 (3.65-5.03); Red Cell Distribution Width 17.3 % (13.2-15.2)
[2022-04-16 08:26] LABS: Calcium 8.7 mg/dL (8.4-10.2)
[2022-04-16] MEDS ORDERED: MIDAZOLAM 2 MG/2 ML INJ IV NR (09:00)
[2022-04-16] MEDS ORDERED: ROCURONIUM 50 MG/5 ML INJ IV ONE (09:39)
--- NOTE | 2022-04-16 09:57 | Anesthesia Day of Surgery ---
Anesthesia Day of Surgery - Day of Surgery Patient Examined: Yes Patient H&P Reviewed: Yes Patient is NPO: Yes Beta Blockers: Yes (labetalol today AM)
[2022-04-16] MEDS ORDERED: HYDROmorphone 1 MG/1 ML INJ ONE (10:27)
[2022-04-16] MEDS ORDERED: SODIUM CHLORIDE 0.9% IRR 1,500 ML BOTTLE IR ONE (10:45)
[2022-04-16] MEDS ORDERED: dexAMETHasone 20 MG/5 ML VIAL ONE (10:48)
[2022-04-16] MEDS ORDERED: NEOSTIGMINE 10MG/10 ML INJ MDV ONE (11:01)
[2022-04-16] MEDS ORDERED: GLYCOPYRROLATE 0.4 MG/2 ML INJ ONE (11:01)
--- NOTE | 2022-04-16 11:07 | Short Stay Summary ---
Short Stay Documentation Date of service: 04/16/22 - History H&P: obtained from office - Allergies and Medications Current Medications: Allergies clonidine Allergy (Verified 04/14/22 15:09) SYSTEM SHUT DOWN hydralazine Allergy (Verified 04/14/22 15:09) INCREASED HEART RATE carvedilol [From Coreg] Adverse Reaction (Verified 04/14/22 15:09) SYSTEM SHUT DOWN Home Medications Medication Instructions Recorded Confirmed Last Taken Type Doxazosin [Cardura] 8 mg PO BID 04/14/22 04/14/22 Unknown History Epoetin Vaibhav-Epbx 20,000 [Retacrit] 20,000 unit IV PRN MDD ANEMIA 04/14/22 04/14/22 Unknown History Heparin 1 dose IV 2XW 04/14/22 04/14/22 Unknown History Iron 1 dose IV QWEEK 04/14/22 04/14/22 Unknown History Labetalol HCl [Labetalol 300mg TAB] 300 mg PO BID 04/14/22 04/14/22 Unknown History Pantoprazole [Protonix TAB] 40 mg PO BID 04/14/22 04/14/22 Unknown History Active Medications Acetaminophen (Acetaminophen 325 Mg Tab) 650 mg PO PREOP PRATIMA Stop: 04/16/22 20:00 Fentanyl (Fentanyl 100 Mcg/2 Ml Inj) 50 mcg IV Q5MIN PRN PRN Reason: Pain , Severe (7-10) Stop: 04/16/22 20:00 Sodium Chloride (Nacl 0.9% 1000 Ml) 1,000 mls @ 42 mls/hr IV DIRECT PRATIMA Stop: 04/16/22 23:59 Midazolam HCl (Midazolam 2 Mg/2 Ml Inj) 2 mg IV PREOP NR Stop: 04/16/22 23:59 Ondansetron HCl (Ondansetron 4 Mg/2 Ml Inj) 4 mg IV ONCE PRN PRN Reason: Nausea And Vomiting Stop: 04/16/22 12:00 - Brief post op/procedure progress note Date of procedure: 04/16/22 Pre-op diagnosis: bilat hydroceles, bph Post-op diagnosis: same Procedure: cysto, bilat hydrocelecomy with joy drain Anesthesia: SANDY Surgeon: DUKE KINGSLEY Estimated blood loss: minimal Pathology: list Specimen disposition: to lab Condition: stable - Hospital course Hospital course: adolphal on chart - Disposition Condition at discharge: Stable Disposition: 01 HOME / SELF CARE / HOMELESS Short Stay Discharge Plan Follow up with: PRIMARY CAREMD [Primary Care Provider] - 7 Days
[2022-04-16] MEDS ORDERED: HYDROcodone/ACETAMINOPHEN 5-325 MG TAB PO PRN (12:00)
--- NOTE | 2022-04-16 13:54 | Operative Report ---
DATE OF SURGERY: 04/16/2022 PREOPERATIVE DIAGNOSES: Bilateral hydroceles, benign prostatic hypertrophy. POSTOPERATIVE DIAGNOSES: Benign prostatic hypertrophy, bilateral hydroceles, redundant scrotal skin. PROCEDURES: Flexible cystoscopy, bilateral hydrocelectomy, scrotoplasty, [place] drain placement. SURGEON: Baron De Dios MD ANESTHESIA: General. ESTIMATED BLOOD LOSS: Minimal. FLUIDS: Crystalloid. COMPLICATIONS: No complications. INDICATIONS: This patient is a 46-year-old gentleman, seen in the office with large scrotal masses, soft ball size. Ultrasound revealed hydrocele bilaterally. He also gives some mild voiding discomfort and presents now for surgical intervention. DESCRIPTION OF PROCEDURE: The patient was taken to the operative suite, placed in a supine position. After adequate general anesthesia, he was prepped and draped in a sterile fashion. Flexible cystoscopy was performed. Normal urethra. Prostate with mild trilobar obstruction. Bladder, no tumors or stones were noted. Scope was removed. Next, due to his redundant scrotal skin, a wedge section of the scrotum was removed on both sides and sent for routine pathologic evaluation. Tunica vaginalis was dissected out and opened. Serosanguineous fluid could be appreciated on the left side. Sac was removed. A 2-0 chromic whipstitch was placed around the testicle, which was healthy in appearance. Similar procedure was performed on the right serosanguineous fluid again. Adequate hemostasis was achieved. [place] layer was then closed with a 2-0 chromic in a running fashion. [place] drain was brought out through both scrotal compartments and secured to the skin with a 2-0 chromic in an interrupted fashion. The skin was closed with a 2-0 chromic in an interrupted fashion. Fluffs and mesh pants were placed. The patient tolerated the procedure well, was extubated and taken to recovery room. He will go home on [place]. TID: [id number] RECEIPT: [id number] [facility]
--- NOTE | 2022-04-16 13:56 | Post Anesthesia Evaluation ---
- Post Anesthesia Evaluation Patient Participated: Yes Airway Patent: Yes Stable Respiratory Function: Yes Nausea/Vomiting: No Temp > 96.8F: Yes Pain Manageable: Yes Adequeate Hydration: Yes Anesthesia Complications: No
[2022-04-16 17:28] VITALS: BP 158/80
== END 2022-04-16 13:50 | disposition home or self-care (01) ==
LOC: OR 06:52
PROVIDERS: ATTEND Urology
DX: N43.3 Hydrocele, unspecified (principal); N50.82 Scrotal pain; N40.0 Benign prostatic hyperplasia without lower urinary tract symptoms; F17.210 Nicotine dependence, cigarettes, uncomplicated; D64.9 Anemia, unspecified; I13.2 Hypertensive heart and chronic kidney disease with heart failure and with stage 5 chronic kidney disease, or end stage renal disease; F41.9 Anxiety disorder, unspecified; N18.6 End stage renal disease; I50.9 Heart failure, unspecified; K21.9 Gastro-esophageal reflux disease without esophagitis; E66.9 Obesity, unspecified; Z99.2 Dependence on renal dialysis; Z79.899 Other long term (current) drug therapy; Z88.8 Allergy status to other drugs, medicaments and biological substances; Z98.890 Other specified postprocedural states; Z68.38 Body mass index [BMI] 38.0-38.9, adult
CPT/HCPCS: 36415; 52000; 55041; 55180; 80048; 85027; 88302; 88305; C9113; J0690; J1100; J1170; J1815; J2250; J2405; J2704; J2710; J3010; J3490; J7030